=== PATIENT | male | born 1965 | race Caucasian/White ===

== ENCOUNTER → 2017-01-28 | Outpatient (CLI) | payer OTHER ==
[~2017-01-28] MED LIST: NITROGLYCERIN SL TABS 0.4 MG TAB SUBLINGUAL ONE
--- NOTE | 2017-01-28 13:10 | EST ---
DATE OF SERVICE: 01/28/2017 AGE: 51Y SEX: M HT: 67 WT: 200 lbs. Protocol Kp: X Other: Stage: III Dur. of Exercise: 6:15 *Heart Rate Blood Pressure *Rest: 111 Rest: 164/76 * *Max. Achieved: 142 Maximum BP: 160/92 85% PMHR: 142 100% PMHR: 167 *METS: 7.5 INDICATIONS: Chest pain. MEDICATIONS: The test is being done to evaluate symptoms of epigastric and chest pain. Baseline EKG showed sinus rhythm with mild ST-T depressions in the inferolateral leads. Patient did not have any chest pain with this. Blood pressure at rest is 164/76 with pulse rate of 111. Patient walked on the Kp protocol for 6 minutes and 15 seconds, achieving a maximum heart rate 142 with a blood pressure of 160/92. EKGs showed more pronounced ST-T abnormalities in the inferolateral leads, which gradually improved in the postexercise period. The changes were not associated with any chest pain. FINAL IMPRESSION: 1. Nondiagnostic stress test because of baseline EKG abnormalities. 2. Patient developed more pronounced ST-T changes during the exercise. I would recommend a repeat stress with imaging either in the form of stress echo or nuclear stress test. 3. Patient did not experience any chest pain. 4. Patient's exercise capacity is below average.
== END | disposition home or self-care (01) ==
LOC: RADNMMAIN 10:54
PROVIDERS: ATTEND Internal Medicine
DX: R07.89 Other chest pain (principal)
CPT/HCPCS: 93017

== ENCOUNTER → 2017-02-09 | Outpatient (CLI) | payer OTHER ==
[~2017-02-09] MED LIST changes: +DOBUTamine DRIP for NUC MED 500 MG in DEXTROSE/WATER 1 250ML.BAG IV ONE; -NITROGLYCERIN SL TABS 0.4 MG TAB SUBLINGUAL ONE
== END | disposition home or self-care (01) ==
LOC: RADNMMAIN 09:47
PROVIDERS: ATTEND Internal Medicine
DX: Z53.9 Procedure and treatment not carried out, unspecified reason (principal)

== ENCOUNTER → 2017-02-11 | Outpatient (CLI) | payer OTHER ==
[2017-02-11 09:25] LABS: CH 28.6; CHCM 32.9; HCT 50.1 % (39.0-53.0); HDW 2.63; HGB 16.5 gm/dL (13.0-17.5); MCH 28.8 pg (25.0-35.0); MCHC 32.9 g/dL (31.0-37.0); MCV 87.5 fL (80.0-100.0); Mean Platelet Volume 6.7; RBC 5.72 m/uL (4.30-5.90); RDW 13.3 % (11.5-15.5); WBC 9.4 k/uL (3.8-10.6)
[2017-02-11 09:38] LABS: Anion Gap 10 mmol/L; Blood Urea Nitrogen 14 mg/dL (9-20); Carbon Dioxide 25 mmol/L (22-30); Chloride 109 mmol/L (98-107); Non-African American GFR(MDRD) >60 (>60 ml/min/1.73 sqM); Potassium 4.1 mmol/L (3.5-5.1); Sodium 144 mmol/L (137-145)
== END | disposition home or self-care (01) ==
LOC: LABPAT 08:50
PROVIDERS: ATTEND Internal Medicine Interventional Cardiology
DX: Z01.812 Encounter for preprocedural laboratory examination (principal); R94.30 Abnormal result of cardiovascular function study, unspecified
CPT/HCPCS: 80051; 82565; 84520; 85027

== ENCOUNTER → 2017-02-18 | Day surgery (SDC) | payer OTHER ==
[2017-02-17 09:30] VITALS: BMI 32.3
[~2017-02-18] MED LIST changes: +ALPRAZolam 0.25 MG TAB PO PRN; +ALPRAZolam 0.5 MG TAB PO PRN; +ASPIRIN 325 MG TAB PO STA; +ATORVASTATIN 80 MG TAB PO STA; -DOBUTamine DRIP for NUC MED 500 MG in DEXTROSE/WATER 1 250ML.BAG IV ONE; +HEPARIN SODIUM 1,000 UNIT/ML VIAL ONE; +IOHEXOL 350 MG/ML 125ML BOTTLE INJ ONE; +LIDOCAINE 2% INJ 20 MG/ML (20 ML MDV) ONE; +LIDOCAINE 2% INJ 20 MG/ML SQ ONE; +MD COMMUNICATION TO PHARMACY 1 EACH MISC PO ONE; +MIDAZOLAM 2 MG/2 ML VIAL IV ONE; +MIDAZOLAM 2 MG/2 ML VIAL ONE; +NITROGLYCERIN SL TABS 0.4 MG TAB SUBLINGUAL PRN; +RX INFO: IV CONTRAST WAS GIVEN 1 EACH MISC MISCELLANE PRN; +SODIUM CHLORIDE 0.9% 1,000 ML IV SCH; +SODIUM CHLORIDE 0.9% 1,000 ML in EMPTY BAG 1 BAG IV ONE; +VERAPAMIL 2.5 MG/ML 2 ML AMP ONE
[2017-02-18 10:44] VITALS: RESP 18; TEMP 98
[2017-02-18] MEDS: VERAPAMIL SYRINGE (5 MG/10 ML) INTRAARTER ONE ×2 (12:47→13:04)
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
[2017-02-18 15:22] LABS: Basophils % (A) 0 %; CH 28.9; CHCM 32.6; Eosinophils # (A) 0.1 k/uL (0-0.7); Eosinophils % (A) 1 %; HCT 48.8 % (39.0-53.0); HGB 15.6 gm/dL (13.0-17.5); Luc # (Auto) 0.14; Luc % (Auto) 2; Lymphocytes # (A) 2.5 k/uL (1.0-4.8); Lymphocytes % (A) 30 %; MCH 28.5 pg (25.0-35.0); MCV 89.1 fL (80.0-100.0); Mean Platelet Volume 7.2; Monocytes # (A) 0.4 k/uL (0-1.0); Monocytes % (A) 4 %; Neutrophils # (A) 5.5 k/uL (1.3-7.7); Neutrophils % (A) 64 %; RBC 5.48 m/uL (4.30-5.90); RDW 13.6 % (11.5-15.5); WBC 8.6 k/uL (3.8-10.6); WBC (Perox) 8.34
[2017-02-18 15:31] LABS: ALT 33 U/L (21-72); AST 18 U/L (17-59); Alkaline Phosphatase 93 U/L (38-126); Anion Gap 10 mmol/L; Blood Urea Nitrogen 10 mg/dL (9-20); Calcium 8.9 mg/dL (8.4-10.2); Carbon Dioxide 24 mmol/L (22-30); Chloride 108 mmol/L (98-107); Cholesterol 183 mg/dL (<200); Glucose 91 mg/dL (74-99); HDL Cholesterol 35 mg/dL (40-60); Non-African American GFR(MDRD) >60 (>60 ml/min/1.73 sqM); Potassium 3.9 mmol/L (3.5-5.1); Sodium 142 mmol/L (137-145); Total Bilirubin 0.8 mg/dL (0.2-1.3); Total Protein 7.6 g/dL (6.3-8.2); Triglycerides 163 mg/dL (<150)
--- NOTE | 2017-02-18 15:32 | XR ---
EXAMINATION TYPE: XR chest 2V DATE OF EXAM: 02/18/2017 COMPARISON: Chest x-ray September 21, 2015. HISTORY: Presurgical study. TECHNIQUE: Frontal and lateral views of the chest are obtained. FINDINGS: Eventration of right hemidiaphragm is present. There is no focal air space opacity, pleural effusion, or pneumothorax seen. The cardiac silhouette size is within normal limits. The osseous structures are intact. IMPRESSION: No acute cardiopulmonary process.
[2017-02-18 15:35] LABS: Appearance,Urine Clear (Clear); Bacteria,Urine Rare /hpf; Bilirubin,Urine Negative (Negative); Glucose,Urine (UA) Negative (Negative); Ketones,Urine Negative (Negative); Leukocyte Esterase,Urine Negative (Negative); Nitrite,Urine Negative (Negative); Particle Count 96; Protein,Urine Negative (Negative); RBC,Urine 1 /hpf (0-5); Specific Gravity,Urine 1.035 (1.001-1.035); UA Billing (MACRO vs. MICRO) MICRO; Urobilinogen,Urine <2.0 mg/dL (<2.0); WBC,Urine 1 /hpf (0-5)
[2017-02-18 15:44] LABS: Partial Thromboplastin Time 25.5 sec (22.0-30.0)
[2017-02-18 15:48] LABS: Prothrombin Time 10.2 sec (9.0-12.0)
[2017-02-18 16:01] LABS: Hepatitis B Surface Ag Index 0.06
[2017-02-18 16:08] LABS: Hepatitis B Core IgM Index 0.02
[2017-02-18 16:18] LABS: Hepatitis C Virus IgG Ab Negative (Negative); Hepatitis C Virus IgG Index 0.03
[2017-02-18 16:21] VITALS: BP 133/84; PULSE 69
--- NOTE | 2017-02-18 17:36 | US ---
EXAMINATION TYPE: US carotid duplex BILAT DATE OF EXAM: 02/18/2017 COMPARISON: NONE CLINICAL HISTORY: 51-year-old male preop CABG. Pre op CABG, exam done portable in ESU. TECHNIQUE: Duplex carotid ultrasound examination. Indirect Doppler criteria was utilized. FINDINGS: Trevizo scale images show mild atelectatic change at the bifurcations. EXAM MEASUREMENTS: RIGHT: Peak Systolic Velocity (PSV) cm/sec ----- Right CCA: 68.4 ----- Right ICA: 59.0 ----- Right ECA: 123.8 ICA/CCA ratio: 0.9 RIGHT: End Diastole cm/sec ----- Right CCA: 20.1 ----- Right ICA: 25.2 ----- Right ECA: 14.1 LEFT: Peak Systolic Velocity (PSV) cm/sec ----- Left CCA: 77.7 ----- Left ICA: 61.3 ----- Left ECA: 62.1 ICA/CCA ratio: 0.8 LEFT: End Diastole cm/sec ----- Left CCA: 22.7 ----- Left ICA: 23.0 ----- Left ECA: 9.1 VERTEBRALS (direction of flow): Right Vertebral: Antegrade Left Vertebral: Antegrade IMPRESSION: No hemodynamically significant stenosis appreciated in either internal carotid artery. Criteria for Assigning % of Stenosis / Diameter reduction (Estimation based on the indirect measurements of the internal carotid artery velocities (ICA PSV). 1. Normal (no stenosis)=ICA PSV < 125 cm/s: ratio < 2.0: ICA EDV<40 cm/s. 2. Less than 50% stenosis=ICA PSV < 125 cm/s: ratio < 2.0: ICA EDV<40 cm/s. 3. 50 to 69% stenosis=ICA PSV of 125 to 230 cm/s: ration 2.0 ? 4.0: ICA EDV 40-100 cm/s. 4. Greater than 70% stenosis to near occlusion= ICA PSV > 230 cm/s: ratio > 4.0: ICA EDV > 100 cm/s. 5. Near occlusion= ICA PSV velocities may be low or undetectable: variable ratio and ICA EDV. 6. Total occlusion=unable to detect flow.
--- NOTE | 2017-02-19 09:08 | CC ---
DATE OF SERVICE: 02/18/2017 PERFORMING PHYSICIAN: Ganga Garduno MD, Mushroom Growing Supervisor. PROCEDURE PERFORMED: 1. Selective right and left coronary angiogram. 2. Left heart catheterization. 3. Left ventriculography. INDICATION: This is a pleasant 51-year-old gentleman who was experiencing intermittent episodes of chest discomfort consistent with unstable angina. He was brought today to undergo a heart catheterization. APPROACH: Right radial artery. COMPLICATIONS: None. LEVEL OF SEDATION: Moderate with a sedation length of 21 minutes. PROCEDURE DESCRIPTION: After obtaining informed consent, the patient was brought to the cardiac dental laboratory supervisor. The right radial artery was cannulated using micropuncture technique. The micropuncture wire passed easily, then I placed 6 Tongan sheath in the right radial artery. Subsequently, I did selective right and left coronary angiogram using JR4 and JL3.5 catheters. After that, I did a left heart catheterization using a 6 Tongan pigtail catheter and also I did left ventriculography using the same pigtail catheter. The procedure was completed without any complication. SELECTIVE CORONARY ANGIOGRAM: 1. The right coronary artery is a large-caliber vessel and it is a dominant vessel. The right coronary artery is totally occluded in the proximal portion right after the bifurcation of the conus branch. Distally it fills by collateral and it seems to be a decent size vessel. 2. The left main is very short and almost nonexistent. 3. The left circumflex: The proximal left circumflex appeared to have a tubular lesion, appears to be in the range of 70%. This is by the bifurcation of the first obtuse marginal branch, which works almost as a ramus, which has some mild disease in the proximal portion. The proximal left circumflex seems to be diseased in the range of 70%. The mid-left circumflex appeared to have mild disease only and gives rises into the second OM branch, which also seems to be a large-caliber vessel with severe disease in the proximal portion. The left circumflex distally is 100% occluded on short segment. 4. Left anterior descending artery: The proximal LAD appeared to have focal tight lesion in the range of 99%. The mid LAD and distal LAD appeared to be angiographically normal. The LAD gives rises into multiple small diagonal branches. 5. HEMODYNAMICS: The left ventricular end-diastolic pressure was 20 mmHg and no gradient was identified across the aortic valve. 6. Left ventriculography was performed in the BECKHAM projection and using a power injection. The left ventricular systolic function seems to be mildly impaired with EF about 40% to 45% with slightly dilated left ventricle. CONCLUSION: 1. Severe triple-vessel coronary artery disease. 2. Occluded right coronary artery in the proximal portion. 3. Occluded distal left circumflex. 4. Critical disease involving the proximal left anterior descending coronary artery. 5. Mildly impaired left ventricular function. 6. Elevated left ventricular end-diastolic pressure. POSTPROCEDURE MANAGEMENT: The patient will be scheduled to undergo to consult surgery, Dr. Villafuerte to see the patient.
--- NOTE | 2017-02-19 10:09 | ECHOF ---
Referral Reason:preop cabg MEASUREMENTS -------- HEIGHT: 165.1 cm WEIGHT: 9.1 kg BP: 118/63 IVSd: 1.2 cm (0.6 - 1.1) LVIDd: 5.3 cm (3.9 - 5.3) LVPWd: 1.1 cm (0.6 - 1.1) IVSs: 1.7 cm LVIDs: 3.6 cm LVPWs: 1.2 cm LAESV Index (A-L): 76.63 ml/m Ao Diam: 3.2 cm (2.0 - 3.7) AV Cusp: 1.7 cm (1.5 - 2.6) LA Diam: 4.1 cm (2.7 - 3.8) MV EXCURSION: 24.324 mm (> 18.000) MV EF SLOPE: 161 mm/s (70 - 150) EPSS: 0.5 cm MV E Andrey: 0.68 m/s MV DecT: 167 ms MV A Andrey: 0.73 m/s MV E/A Ratio: 0.93 RAP: 5.00 mmHg RVSP: 10.90 mmHg FINDINGS -------- Sinus rhythm. This was a technically adequate study. There is moderate concentric left ventricular hypertrophy. Overall left ventricular systolic function is mild-moderately impaired with, an EF between 40 - 45 %. Anterseptal Hypokinesis Meacham Hypokinesis. The right ventricle is normal in size. LA is severely dilated >40 ml/m2 The right atrial size is normal. There is mild aortic valve sclerosis. There is no evidence of aortic regurgitation. Mild mitral regurgitation is present. Mild tricuspid regurgitation present. There is no evidence of pulmonary hypertension. The right ventricular systolic pressure, as measured by Doppler, is 10.90mmHg. Trace/mild (physiologic) pulmonic regurgitation. The aortic root size is normal. There is no pericardial effusion. CONCLUSIONS -------- 1. There is moderate concentric left ventricular hypertrophy. 2. The right ventricular systolic pressure, as measured by Doppler, is 10.90mmHg. 3. Trace/mild (physiologic) pulmonic regurgitation. 4. The aortic root size is normal. 5. There is no pericardial effusion. 6. Overall left ventricular systolic function is mild-moderately impaired with, an EF between 40 - 45 %. 7. Anterseptal Hypokinesis 8. Meacham Hypokinesis. 9. LA is severely dilated >40 ml/m2 10. There is mild aortic valve sclerosis. 11. Mild mitral regurgitation is present. 12. Mild tricuspid regurgitation present. 13. There is no evidence of pulmonary hypertension. INSURANCE BILLING CLERK: Juany De Leon RDCS
--- NOTE | 2017-02-24 10:11 | P.VSCSTY ---
Greater Saphenous Vein Mapping This is bilateral lower extremity greater saphenous vein mapping. Date of service 02/18/2017 Vein quality and ultrasound appearance normal. Vein size groin right 7.5 x 9.0 groin left 11.8 x 10.9 High thigh right 6.3 x 6.5 high thigh left 8.1 x 8.1 Mid thigh right 6.2 x 5.8 mid thigh left 5.8 x 5.4 Above-knee right 7.0 x 6.7 above- knee left 6.5 x 5.4 Below knee right 7.1 x 6.5 below-knee left 4.2 x 4.4 Mid calf right 5.6 x 4.7 mid calf left 4.0 x 4.4 Ankle right 5.4 x 4.3 ankle left 4.5 x 3.7 Impression usable bilateral greater saphenous vein. Somewhat large at the thigh level. Left lower leg most suitable in size for coronaries.
== END ==
LOC: CATHCVL 10:24
PROVIDERS: ATTEND Internal Medicine Interventional Cardiology
DX: I25.118 Atherosclerotic heart disease of native coronary artery with other forms of angina pectoris (principal); I25.110 Atherosclerotic heart disease of native coronary artery with unstable angina pectoris; I25.82 Chronic total occlusion of coronary artery; I08.3 Combined rheumatic disorders of mitral, aortic and tricuspid valves; R94.39 Abnormal result of other cardiovascular function study; I10 Essential (primary) hypertension; E78.5 Hyperlipidemia, unspecified; E78.00 Pure hypercholesterolemia, unspecified; M19.90 Unspecified osteoarthritis, unspecified site; F17.210 Nicotine dependence, cigarettes, uncomplicated; Z79.82 Long term (current) use of aspirin; Z79.891 Long term (current) use of opiate analgesic; Z79.899 Other long term (current) drug therapy
CPT/HCPCS: 99152; 94150; 93306; 93458; 80061; 80053; 80074; 84443; 83036; 83735; 85025; 85610; 85730; 81001; 87070; 87086; 71020; 93970; 93880; 99153; C1894; J2001; J2250; Q9967; 86850; 86900; 86901; 86920

== ENCOUNTER 2017-02-22 05:40 | Inpatient (IN) | payer OTHER ==
[2017-02-19 13:12] VITALS: BMI 32.3
[~2017-02-22 05:40] MED LIST changes: +ALBUMIN HUMAN 25% 50 ML IV ONE; +ALBUMIN HUMAN 5% 500 ML IVPB ONE; -ALPRAZolam 0.25 MG TAB PO PRN; -ALPRAZolam 0.5 MG TAB PO PRN; +AMINOCAPROIC ACID 250 MG/ML 20 ML VIAL IV ONE; +AMINOCAPROIC ACID 5,000 MG in DEXTROSE 5% IN WATER 50 ML IV ONE; +ASPIRIN 325 MG TAB PO ONE; -ASPIRIN 325 MG TAB PO STA; +ATORVASTATIN 10 MG TAB PO ONE; -ATORVASTATIN 80 MG TAB PO STA; +CALCIUM CHLORIDE 100 MG/ML 10 ML SYRINGE IV ONE; +CHLORHEXIDINE GLUCONATE 15 ML CUP MUCOUS MEM ONE; +CLEVIDIPINE BUTYRATE 25 MG in EMPTY BAG 1 BAG IV ONE; +DEXTROSE 5% IN WATER 1,000 ML with POTASSIUM CHLORIDE 110 MEQ, MAGNESIUM SULFATE 16 MEQ... IV ONE; +DEXTROSE 5% IN WATER 1,000 ML with POTASSIUM CHLORIDE 25 MEQ, SODIUM CHLORIDE 4MEQ/ML V... IV ONE; +DILTIAZEM 125 MG in SODIUM CHLORIDE 0.9% 100 ML IV ONE; +HEPARIN SODIUM 1,000 UNIT/ML VIAL IV ONE; -HEPARIN SODIUM 1,000 UNIT/ML VIAL ONE; +HEPARIN SODIUM,PORCINE 5,000 UNIT in SODIUM CHLORIDE 0.9% 500 ML IV ONE; +INSULIN REGULAR 100 UNIT in SODIUM CHLORIDE 0.9% 100 ML IV ONE; -IOHEXOL 350 MG/ML 125ML BOTTLE INJ ONE; +LACTATED RINGERS 1,000 ML IV ONE; +LACTATED RINGERS 1,000 ML IV SCH; -LIDOCAINE 2% INJ 20 MG/ML (20 ML MDV) ONE; -LIDOCAINE 2% INJ 20 MG/ML SQ ONE; +MAGNESIUM SULFATE MG 500 MG/ML VIAL IV ONE; +MANNITOL 25% 12.5 GM/50 ML VIAL IV ONE; -MD COMMUNICATION TO PHARMACY 1 EACH MISC PO ONE; +METOPROLOL TARTRATE 12.5 MG TAB PO ONE; -MIDAZOLAM 2 MG/2 ML VIAL IV ONE; +MIDAZOLAM 2 MG/2 ML VIAL IV PRN; -MIDAZOLAM 2 MG/2 ML VIAL ONE; +MUPIROCIN 2% OINT 22 GM TUBE NASAL NR; +NITROGLYCERIN-D5W PMX 25 MG/250 ML BTL IV ONE; +NITROGLYCERIN-D5W PMX 50 MG in DEXTROSE/WATER 1 250ML.BAG IV ONE; +NOREPINEPHRIN 4 MG-0.9% NS PMX 4 MG/250 ML ML IV ONE; +PAPAVERINE 360 MG in SODIUM CHLORIDE 0.9% 90 ML IV ONE; +PHENYLEPHRINE 40 MG in SODIUM CHLORIDE 0.9% 250 ML IV ONE; +PHENYLEPHRINE-0.9% NACL SYG 1 MG/10 ML SYRINGE IV ONE; +PROPOFOL 50 ML IV ONE; +PROTAMINE SULFATE 10 MG/ML 25 ML VIAL IV ONE; +PROTAMINE SULFATE 250 MG in EMPTY BAG 1 BAG IV ONE; -RX INFO: IV CONTRAST WAS GIVEN 1 EACH MISC MISCELLANE PRN; +SODIUM BICARB 8.4% 50 ML SYR (1 MEQ/ML) IV ONE; +SODIUM CHLORIDE 0.9% 1,000 ML IV ONE; -SODIUM CHLORIDE 0.9% 1,000 ML IV SCH; -SODIUM CHLORIDE 0.9% 1,000 ML in EMPTY BAG 1 BAG IV ONE; -VERAPAMIL 2.5 MG/ML 2 ML AMP ONE; +ceFAZolin 1,000 MG in SODIUM CHLORIDE 0.9% IRRIGATIO 1,000 ML IRRIGATION ONE; +ceFAZolin 2,000 MG in SODIUM CHLORIDE 0.9% 30 ML IVPB ONE
[2017-02-22] MEDS ORDERED: fentaNYL (PF) 50 MCG/ML 50 ML VIAL ONE (07:59)
[2017-02-22] MEDS ORDERED: PROPOFOL 10 MG/ML 20 ML VIAL IV ONE (07:59)
[2017-02-22] MEDS ORDERED: HEPARIN SODIUM,PORCINE 10,000 UNIT/ML 1 ML VIAL ONE (07:59)
[2017-02-22] MEDS ORDERED: ALBUMIN HUMAN 5% 250 ML BOTTLE IVPB ONE (07:59)
[2017-02-22] MEDS ORDERED: ELECTROLYTE-R (PH 7.4) 1,000 ML IV.SOLN IV ONE (07:59)
[2017-02-22] MEDS ORDERED: VECURONIUM 10 MG VIAL IV ONE (07:59)
[2017-02-22] MEDS ORDERED: MIDAZOLAM 2 MG/2 ML VIAL ONE (07:59)
[2017-02-22] MEDS ORDERED: LACTATED RINGERS 1,000 ML BAG IV ONE (07:59)
[2017-02-22 08:48] LABS: Glucose,Whole Blood 106 mg/dL (75-99)
[2017-02-22] MEDS ORDERED: DILTIAZEM 125 MG in SODIUM CHLORIDE 0.9% 100 ML IV SCH ×2 (10:30→15:30)
[2017-02-22 11:25] LABS: Glucose,Whole Blood 104 mg/dL (75-99)
[2017-02-22 12:56] LABS: Glucose,Whole Blood 247 mg/dL (75-99)
[2017-02-22 13:14] LABS: Glucose,Whole Blood 198 mg/dL (75-99)
[2017-02-22 13:55] LABS: Glucose,Whole Blood 135 mg/dL (75-99)
[2017-02-22] MEDS ORDERED: ALBUMIN HUMAN 5% 250 ML IVPB ONE (14:12)
[2017-02-22 14:50] LABS: Glucose,Whole Blood 114 mg/dL (75-99)
[2017-02-22] MEDS ORDERED: METOCLOPRAMIDE 5 MG/ML 2 ML VIAL IVP PRN (15:06)
[2017-02-22] MEDS ORDERED: ONDANSETRON 4 MG/2 ML VIAL IVP PRN (15:06)
[2017-02-22] MEDS ORDERED: Magnesium Replacement Protocol 1 EACH MISC MISCELLANE PRN (15:06)
[2017-02-22] MEDS ORDERED: MORPHINE SULFATE 2 MG/ML SYRINGE IVP PRN (15:06)
[2017-02-22] MEDS ORDERED: BENZOCAINE/MENTHOL LOZENG 1 EACH LOZENGE MUCOUS MEM PRN (15:06)
[2017-02-22] MEDS ORDERED: CALCIUM GLUCONATE 2,000 MG in SODIUM CHLORIDE 0.9% 100 ML IVPB PRN (15:06)
[2017-02-22] MEDS ORDERED: Potassium Replacement Protocol 1 EACH MISC MISCELLANE PRN (15:06)
[2017-02-22] MEDS ORDERED: Phosphorus Replacement Protoco 1 EACH MISC MISCELLANE PRN (15:06)
[2017-02-22] MEDS ORDERED: NITROGLYCERIN-D5W PMX 50 MG in DEXTROSE/WATER 1 250ML.BAG IV SCH (15:30)
[2017-02-22] MEDS ORDERED: INSULIN REGULAR 100 UNIT in SODIUM CHLORIDE 0.9% 100 ML IV SCH (15:30)
[2017-02-22] MEDS ORDERED: CLEVIDIPINE BUTYRATE 25 MG in EMPTY BAG 1 BAG IV SCH (15:30)
[2017-02-22] MEDS: LACTATED RINGERS 1,000 ML IV SCH (15:33)
[2017-02-22 15:57] LABS: Basophils % (A) 0 %; CH 28.9; CHCM 33.2; Eosinophils # (A) 0.1 k/uL (0-0.7); Eosinophils % (A) 1 %; HCT 32.7 % (39.0-53.0); HDW 2.65; Luc # (Auto) 0.08; Luc % (Auto) 1; Lymphocytes # (A) 1.7 k/uL (1.0-4.8); Lymphocytes % (A) 18 %; MCH 28.9 pg (25.0-35.0); MCHC 32.9 g/dL (31.0-37.0); MCV 87.7 fL (80.0-100.0); Mean Platelet Volume 8.6; Monocytes # (A) 0.5 k/uL (0-1.0); Monocytes % (A) 5 %; Neutrophils # (A) 6.9 k/uL (1.3-7.7); Neutrophils % (A) 75 %; RBC 3.73 m/uL (4.30-5.90); RDW 13.2 % (11.5-15.5); WBC 9.2 k/uL (3.8-10.6); WBC (Perox) 8.93
[2017-02-22 16:06] LABS: INR 1.2 (<1.1); Partial Thromboplastin Time 34.2 sec (22.0-30.0); Prothrombin Time 11.8 sec (9.0-12.0)
[2017-02-22 16:07] LABS: Glucose,Whole Blood 82 mg/dL (75-99)
[2017-02-22 16:10] LABS: HGB 10.8 gm/dL (13.0-17.5)
[2017-02-22 16:15] LABS: Ionized Calcium 4.6 mg/dL (4.5-5.3)
--- NOTE | 2017-02-22 16:15 | XR ---
EXAMINATION TYPE: XR chest 1V portable DATE OF EXAM: 02/22/2017 COMPARISON: 02/18/2017 INDICATION: Postoperative cardiac surgery TECHNIQUE: Single frontal view of the chest is obtained. FINDINGS: The heart size is normal. The pulmonary vasculature is normal. No suspicious infiltrates are evident. Sternotomy wires from the patient's CABG are evident. Endotracheal tube is present with the tip 2.4 cm above the wilda. Nasogastric tube transverses the t horax with tip in left upper quadrant of the abdomen. Mediastinal tubes are present. Monson-Rolanda cathet er is present with the tip within the proximal main pulmonary artery artery. Bilateral chest tubes ar e present. No pneumothorax is evident on the supine images. Some subcutaneous air is in the left neck . IMPRESSION: 1. Multiple lines and catheters discussed above. 2. Small amount of subcutaneous air is in the left neck. Pneumothorax is not identified.
[2017-02-22 16:26] LABS: ALT 16 U/L (21-72); AST 36 U/L (17-59); Alkaline Phosphatase 37 U/L (38-126); Anion Gap 7 mmol/L; Blood Urea Nitrogen 12 mg/dL (9-20); Calcium 7.3 mg/dL (8.4-10.2); Carbon Dioxide 25 mmol/L (22-30); Chloride 111 mmol/L (98-107); Glucose 74 mg/dL (74-99); Magnesium 2.7 mg/dL (1.6-2.3); Non-African American GFR(MDRD) >60 (>60 ml/min/1.73 sqM); Potassium 4.2 mmol/L (3.5-5.1); Sodium 143 mmol/L (137-145); Total Bilirubin 0.9 mg/dL (0.2-1.3); Total Protein 5.1 g/dL (6.3-8.2)
[2017-02-22 16:40] LABS: ABG HCO3 25 mmol/L (21-25); ABG PCO2 49 mmHg (35-45); ABG PH 7.32 (7.35-7.45); ABG PO2 259 mmHg (83-108)
[2017-02-22 16:41] LABS: ABG Base Excess -0.7 mmol/L; ABG Oxygen Saturation 99.8 % (94-97); ABG TCO2 26 mmol/L (19-24)
[2017-02-22 16:44] LABS: Glucose,Whole Blood 71 mg/dL (75-99)
[2017-02-22] MEDS: IPRATROPIUM-ALBUTEROL 3 ML NEB INHALATION SCH ×3 (17:04→23:07)
[2017-02-22] MEDS: ceFAZolin 2 GM in SODIUM CHLORIDE 0.9% 100 ML IVPB SCH (17:17)
[2017-02-22] MEDS: PROPOFOL 500 MG in EMPTY BAG 1 BAG IV SCH ×2 (17:20→20:08)
[2017-02-22 17:27] LABS: Glucose,Whole Blood 79 mg/dL (75-99)
--- NOTE | 2017-02-22 17:37 | OP ---
DATE OF SERVICE: 02/22/2017 SURGEON: Yves Villafuerte MD PROJECT DEVELOPMENT DIRECTOR: 1. JUANA Toledo 2. NEREYDA Cochran 3. Hamilton Castillo NP PREOPERATIVE DIAGNOSES: 1. Triple vessel coronary artery disease. 2. Stable angina. 3. Mild to moderate left ventricular dysfunction. 4. Mild mitral valve regurgitation. 5. Hypertension. 6. Hyperlipidemia. 7. Tobacco abuse. POSTOPERATIVE DIAGNOSES: 1. Triple vessel coronary artery disease. 2. Stable angina. 3. Mild to moderate left ventricular dysfunction. 4. Mild mitral valve regurgitation. 5. Hypertension. 6. Hyperlipidemia. 7. Tobacco abuse. OPERATION: 1. Triple coronary artery bypass grafting using the left internal mammary artery to the left anterior descending artery, left radial artery taken as a Y-graft from the left internal mammary artery and anastomosed to the second obtuse marginal artery, reverse saphenous vein graft from the aorta to the posterior descending artery. 2. Endoscopic harvesting of the left radial artery. 3. Endoscopic harvesting of the left greater saphenous vein. 4. Intraoperative transesophageal echocardiogram and epiaortic scanning. 5. Intraoperative graft flow measurement. ANESTHESIA: ESTIMATED BLOOD LOSS: SPECIMENS REMOVED: COMPLICATIONS: OPERATIVE FINDINGS: INDICATION FOR SURGERY: Patient is a 51-year-old gentleman with the above comorbidities, who was worked up for recent worsening of stable angina and was found to have a totally occluded right coronary artery that is chronic with right to right collaterals and a totally occluded circumflex system with left to left collaterals and severe stenosis of the proximal left anterior descending artery, which was essentially his only patent vessel. His left ventricular function was estimated at around 45%. Patient is being brought in today for coronary artery bypass grafting. Patient has a short sternum and I am planning to do radial artery rather than the right internal mammary artery to the occluded circumflex system. His vein seems to be bit large on US. Risks, benefits, and alternatives were discussed with him. He understood and agreed to proceed. DESCRIPTION OF THE PROCEDURE: Patient in supine position and the right internal jugular Hickman-Rolanda catheter and a right brachial arterial line were placed in the preoperative holding area. PA pressure was 45/20 and cardiac index of 0.4. Subsequently he was brought to the operating room, where general endotracheal anesthesia was induced uneventfully. [place] catheter was inserted. The chest, abdomen and both lower extremities as well as the left upper extremities were prepped and draped using ChloraPrep. Ioban was used to cover the skin. Patient received 2 grams of cefazolin intravenously. Transesophageal echocardiogram confirmed the preoperative finding of moderate left ventricular dysfunction with mild mitral valve regurgitation. Midline sternotomy was performed and the bone was quite dense but not bleeding much. The left hemisternum was elevated and left internal mammary artery was harvested in a somewhat skeletonized fashion. The left pleura was intentionally opened in this process and was drained with 28 [place] chest tube. There was also a large breech in the right pleura and the right pleural cavity was drained with another 28 [place] chest tube. In the same setting, the left radial artery was harvested endoscopically after a clamping trial at the wrist revealed preserved pulsatile O2 signal at the level of the index finger. The forearm incision was closed over a drain. The radial artery was prepared by incising the fascia all along its volar aspect and clipping all the branches and was around 3 mm in diameter and good quality. Also in the same setting, the left greater saphenous vein was harvested endoscopically after administration of 2500 units of heparin. It was harvested from ankle to mid thigh level where it became very large. The leg incisions were closed over a drain. The vein was prepared and appeared to be in its below knee segment uniform around 4 mm in diameter, but became large in the 5 to 6 mm diameter, non-varicose though, at the level of the thigh and that segment was not used. Mediastinal fat was dissected between 2 ties and epiaortic scanning revealed no protruding atheroma in the ascending aorta. Pericardium was opened in an inverted T fashion and a pericardial cradle was created. Findings included a small short aorta, hypertrophied heart. There was also evidence of diffuse coronary artery disease. There was evidence of fibrotic changes in the lateral wall and the inferior wall did umbilicate once we were on pump indicating also some muscle thinning inferiorly. After placement of respective pledgeted pursestring and after systemic heparinization aortic cannulation with a 21 [place] soft flow cannula, venous cannulation with a dual-stage venous cannula was performed. Antegrade as well as retrograde catheters were placed. At this point , and before initiating CPB, we elected to anastomose the left radial artery to the left internal mammary artery for inflow. The mammary artery was doubly clipped distally and transected and had a good pulsatile flow in it. However, it was thin-walled, around 2 mm in diameter. So the left radial artery was anastomosed at the level of the left pleural pericardial reflection to the left internal mammary artery as a Y-graft using Prolene 7-0. There was excellent pulsatile flow from both arterial ends at the end of this. At this point we initiated cardiopulmonary bypass and with the heart warm and empty, we looked at the targets as it would have been extremely hard to visualize the lateral wall with the heart full, in view of patient's anatomy . The right coronary artery was diffusely diseased and the posterior descending artery was the site for bypass. The left anterior descending artery was also diffusely diseased but its distal aspect was soft with lateral plaque. Look at the lateral wall as mentioned above, there was some fibrotic changes. The ramus vessel was a very small vessel. The second obtuse marginal branch, which was the mid lateral branch was of good diameter. The third OM over the posterolateral branch from the circumflex artery was very small and diffusely diseased, non- bypassable. So the targets were LAD, second obtuse marginal artery, and posterior descending artery. The aorta was clamped at this point and during aortic clamping, myocardial protection was achieved with an initial dose of 1 liter of antegrade cold blood cardioplegia followed by 500 mL of retrograde cold blood cardioplegia. All subsequent doses were given retrograde as well as through the vein graft that was initially constructed to the posterior descending artery to ensure delivery of cardioplegia to the infero- posteriror wall. The first distal anastomosis was between a segment of reverse saphenous vein graft of good quality, around 4 mm in diameter and thin-walled and the posterior descending artery, which was around 1.5 mm in diameter with no major plaque in it at that level using Prolene 7-0 in continuous fashion. That anastomosis was hemostatic and there was good flow in the vein that was connected to a Y-arm off the retrograde delivery system for maintenance doses through the vein simultaneously with a retrograde coronary sinus cannula. Looking at the lateral wall and initially we had planned to eventually sequential the radial artery if need be to the lateral targets in case we had two; however, we had only one target, which was mid ventricular branch or the second obtuse marginal branch. So the radial artery was anastomosis in an end-to-side fashion to the second obtuse marginal artery, which was opened, was around 1.5 mm in diameter using Prolene 7-0 in continuous fashion. That anastomosis was hemostatic. The third and last distal anastomosis was between the left internal mammary artery and the mid to distal aspect of the left anterior descending artery, which was opened, had a soft eccentric plaque in it, was around 1.5 mm in diameter using Prolene 7-0 in continuous fashion. That was also hemostatic. At this point rewarming started as we punched out one button of 5 mm from the anterior aspect of the proximal aorta and performed the single proximal anastomosis of the vein to the aorta using Prolene 6-0 in continuous fashion. We gave warm blood retrograde as we were performing that anastomosis. Patient was given lidocaine and magnesium before unclamping the aorta. He regained spontaneous sinus rhythm; however, he was bradycardic. Two monopolar atrial pacing wires were affixed to the right atrial appendage and the right atrial free wall. One bipolar ventricular pacing wire was driven via the inferior aspect of the right ventricle. After a period of reperfusion after the initial measurement showing patent graft, we were able to wean off cardiopulmonary bypass without any need of any inotropic support, atrially paced at 80. CARIN showed improved left ventricular function. There was mild mitral valve regurgitation. With that, test dose than full dose protamine was given. Decannulation proceeded. The retrograde site and the venous cannulation sites were reinforced. One 32 Maur[place] substernal chest tube was placed. Pericardial fat was approximated over the heart, the grafts and the aorta loosely. We had performed full flow measurements once we were off bypass and we had 3 very well functioning grafts with excellent parameters. After ensuring adequate hemostasis and hemodynamics and after correct sponge, instrument and needle count, the sternum was approximated using 5 [id number] [place] cable after interposing fibrillar between the sternal edges. Thorough irrigation with cefazolin followed. The rest of the closure proceeded in layers. Skin glue was applied. Patient did not receive any blood product but received 800 mL of Cell Saver blood. He was transferred to the ICU in stable condition, atrially paced at 80, mean arterial pressure of 84, PA pressure of 31/17. MTDD
[2017-02-22 18:23] LABS: Glucose,Whole Blood 96 mg/dL (75-99)
[2017-02-22 18:35] LABS: Basophils % (A) 0 %; CH 28.5; CHCM 31.7; Eosinophils % (A) 0 %; HCT 36.7 % (39.0-53.0); HDW 2.53; HGB 11.7 gm/dL (13.0-17.5); Luc # (Auto) 0.16; Luc % (Auto) 1; Lymphocytes # (A) 2.4 k/uL (1.0-4.8); Lymphocytes % (A) 18 %; MCH 28.8 pg (25.0-35.0); MCHC 31.9 g/dL (31.0-37.0); MCV 90.2 fL (80.0-100.0); Mean Platelet Volume 8.2; Monocytes # (A) 0.7 k/uL (0-1.0); Monocytes % (A) 5 %; Neutrophils # (A) 9.7 k/uL (1.3-7.7); Neutrophils % (A) 75 %; RBC 4.07 m/uL (4.30-5.90); RDW 13.6 % (11.5-15.5); WBC 12.9 k/uL (3.8-10.6); WBC (Perox) 13.01
[2017-02-22] MEDS: ACETAMINOPHEN IV (For NPO) 1,000 MG in EMPTY BAG 1 BAG IVPB SCH (18:35)
[2017-02-22 19:19] LABS: Glucose,Whole Blood 114 mg/dL (75-99)
[2017-02-22] MEDS: ALBUMIN HUMAN 5% 250 ML in EMPTY BAG 1 BAG IVPB PRN ×2 (19:38→19:39)
[2017-02-22] MEDS ORDERED: IPRATROPIUM-ALBUTEROL 3 ML NEB INHALATION SCH (20:00)
[2017-02-22 20:39] LABS: Glucose,Whole Blood 115 mg/dL (75-99)
[2017-02-22] MEDS: MUPIROCIN 2% OINT 22 GM TUBE NASAL SCH (21:02)
[2017-02-22 21:16] LABS: Glucose,Whole Blood 111 mg/dL (75-99)
--- NOTE | 2017-02-22 21:28 | P.PN ---
Progress Note - Text Procedure performed: Transesophageal echocardiography Indication for the procedure: Coronary artery bypass graft surgery, ischemia monitoring, assessment of valvular function, intracardiac air monitoring, assessment of regional wall motion abnormalities and hemodynamic monitoring. Probe insertion: Under general anesthesia, uneventful. Pre-bypass findings: Left ventricle: moderate hypertrophy present and LV ejection fraction is approximately 45%. Global hypokinesis evident. Left atrium dilated. No thrombus seen in the appendage. Right atrium normal in size. No patent foramen ovale or ASD seen. Right ventricle normal in structure and function. Aortic valve appears to be sclerotic .No Aortic Regurgitation seen. Aortic valve area by planimetry 2.5 cm. Mitral valve normal in anatomy. Trivial to Mild mitral regurgitation seen. Trivial tricuspid regurgitation seen. Pulmonic valve appears to be normal. Descending aorta grade 1-2 atheroma seen. No pericardial effusion noted. There is grade 1 diastolic dysfunction Post-bypass findings: LV ejection fraction appears to be improved to 50% No new regional wall motion abnormalities noted. The rest of the exam is same as pre-bypass.
[2017-02-22 22:15] LABS: Glucose,Whole Blood 114 mg/dL (75-99)
[2017-02-22 23:04] LABS: Glucose,Whole Blood 112 mg/dL (75-99)
[2017-02-22] MEDS ORDERED: DEXMEDETOMIDINE 400 MCG in SODIUM CHLORIDE 0.9% 100 ML IV SCH (23:53)
[2017-02-23 00:23] LABS: Glucose,Whole Blood 127 mg/dL (75-99)
[2017-02-23] MEDS: ceFAZolin 2 GM in SODIUM CHLORIDE 0.9% 100 ML IVPB SCH ×2 (00:56→08:28)
[2017-02-23] MEDS: ACETAMINOPHEN IV (For NPO) 1,000 MG in EMPTY BAG 1 BAG IVPB SCH ×3 (00:56→12:04)
[2017-02-23] MEDS: HEPARIN SODIUM,PORCINE 5,000 UNIT/ML 1 ML VIAL SQ SCH ×3 (01:00→15:12)
[2017-02-23 01:23] LABS: Glucose,Whole Blood 138 mg/dL (75-99)
[2017-02-23 02:14] LABS: Glucose,Whole Blood 138 mg/dL (75-99)
[2017-02-23 03:25] LABS: Glucose,Whole Blood 140 mg/dL (75-99)
[2017-02-23 03:54] LABS: ABG Base Excess -1.7 mmol/L; ABG HCO3 23 mmol/L (21-25); ABG PCO2 38 mmHg (35-45); ABG PH 7.39 (7.35-7.45); ABG PO2 67 mmHg (83-108); ABG TCO2 24 mmol/L (19-24)
[2017-02-23 04:16] LABS: Glucose,Whole Blood 134 mg/dL (75-99)
[2017-02-23 04:29] LABS: Basophils % (A) 0 %; CH 28.8; Eosinophils % (A) 0 %; HCT 32.8 % (39.0-53.0); Luc # (Auto) 0.11; Luc % (Auto) 1; Lymphocytes # (A) 0.8 k/uL (1.0-4.8); Lymphocytes % (A) 8 %; MCH 29.3 pg (25.0-35.0); MCHC 33.4 g/dL (31.0-37.0); MCV 87.7 fL (80.0-100.0); Mean Platelet Volume 8.9; Monocytes # (A) 0.6 k/uL (0-1.0); Monocytes % (A) 6 %; Neutrophils # (A) 8.5 k/uL (1.3-7.7); Neutrophils % (A) 85 %; RBC 3.74 m/uL (4.30-5.90); RDW 13.5 % (11.5-15.5); WBC (Perox) 10.63
[2017-02-23] MEDS: IPRATROPIUM-ALBUTEROL 3 ML NEB INHALATION SCH ×5 (05:03→20:06)
[2017-02-23 05:12] LABS: Ionized Calcium 4.7 mg/dL (4.5-5.3)
[2017-02-23 05:25] LABS: ALT 19 U/L (21-72); AST 50 U/L (17-59); Alkaline Phosphatase 44 U/L (38-126); Anion Gap 7 mmol/L; Blood Urea Nitrogen 15 mg/dL (9-20); Calcium 7.7 mg/dL (8.4-10.2); Carbon Dioxide 23 mmol/L (22-30); Chloride 114 mmol/L (98-107); Glucose 126 mg/dL (74-99); Magnesium 2.3 mg/dL (1.6-2.3); Non-African American GFR(MDRD) >60 (>60 ml/min/1.73 sqM); Potassium 4.2 mmol/L (3.5-5.1); Sodium 144 mmol/L (137-145); Total Bilirubin 0.9 mg/dL (0.2-1.3); Total Protein 5.4 g/dL (6.3-8.2)
[2017-02-23 05:31] LABS: Glucose,Whole Blood 128 mg/dL (75-99)
[2017-02-23] MEDS ORDERED: DEXMEDETOMIDINE IV SCH (06:21)
[2017-02-23 06:22] LABS: Glucose,Whole Blood 118 mg/dL (75-99)
[2017-02-23 07:27] LABS: Glucose,Whole Blood 126 mg/dL (75-99)
[2017-02-23 07:34] LABS: ABG HCO3 24 mmol/L (21-25); ABG Oxygen Saturation 99.9 % (94-97); ABG PCO2 45 mmHg (35-45); ABG PH 7.36 (7.35-7.45); ABG PO2 288 mmHg (83-108); ABG TCO2 26 mmol/L (19-24)
[2017-02-23 07:35] LABS: ABG Base Excess -3.3 mmol/L; ABG HCO3 24 mmol/L (21-25); ABG Oxygen Saturation 98.1 % (94-97); ABG PCO2 53 mmHg (35-45); ABG PH 7.27 (7.35-7.45); ABG PO2 121 mmHg (83-108); ABG TCO2 25 mmol/L (19-24)
[2017-02-23 07:38] LABS: ABG Base Excess -0.6 mmol/L; ABG HCO3 25 mmol/L (21-25); ABG Oxygen Saturation 99.8 % (94-97); ABG PCO2 48 mmHg (35-45); ABG PH 7.33 (7.35-7.45); ABG PO2 258 mmHg (83-108); ABG TCO2 26 mmol/L (19-24)
[2017-02-23 07:39] LABS: ABG Base Excess -1.1 mmol/L; ABG HCO3 24 mmol/L (21-25); ABG Oxygen Saturation 99.9 % (94-97); ABG PCO2 45 mmHg (35-45); ABG PH 7.35 (7.35-7.45); ABG PO2 361 mmHg (83-108); ABG TCO2 25 mmol/L (19-24)
[2017-02-23 07:40] LABS: ABG Base Excess -2.4 mmol/L; ABG HCO3 22 mmol/L (21-25); ABG Oxygen Saturation 99.9 % (94-97); ABG PCO2 40 mmHg (35-45); ABG PH 7.36 (7.35-7.45); ABG PO2 279 mmHg (83-108); ABG TCO2 23 mmol/L (19-24)
[2017-02-23 07:41] LABS: ABG Base Excess -1.2 mmol/L; ABG HCO3 24 mmol/L (21-25); ABG Oxygen Saturation 99.9 % (94-97); ABG PCO2 46 mmHg (35-45); ABG PH 7.34 (7.35-7.45); ABG PO2 276 mmHg (83-108); ABG TCO2 26 mmol/L (19-24)
[2017-02-23] MEDS ORDERED: FUROSEMIDE 10 MG/ML 2 ML VIAL IV ONE ×2 (07:45→20:14)
[2017-02-23 08:17] LABS: Glucose,Whole Blood 128 mg/dL (75-99)
[2017-02-23 08:26] LABS: INR 1.1 (<1.1)
[2017-02-23] MEDS: ASPIRIN 325 MG TAB PO SCH (08:28)
[2017-02-23] MEDS ORDERED: PANTOPRAZOLE 40 MG/10 ML VIAL IVP SCH (09:00)
--- NOTE | 2017-02-23 09:22 | XR ---
EXAMINATION TYPE: XR chest 1V portable DATE OF EXAM: 02/23/2017 COMPARISON: February 22, 2017 at 3:58 PM HISTORY: Postoperative cardiac surgery, follow-up TECHNIQUE: AP semiupright portable FINDINGS: Since the prior study patient has been extubated and the NG tube is been removed. There is a right IJ [place] catheter, with tip in the proximal RPA. Bilateral chest tubes are noted. Sternal sutu res and mediastinal clips and EKG leads are also appreciated. A small pneumothorax is redemonstrated along the left heart border, this appears quite small. No othe r abnormal gas collections evident. Relatively low lung inflation at the moment of x-ray exposure, but the visualized lungs are predomina ntly clear and well expanded bilaterally. Bones and soft tissues are unremarkable. IMPRESSION: POST EXTUBATION CHEST X-RAY; SMALL LEFT PNEUMOTHORAX.
[2017-02-23 09:31] LABS: Glucose,Whole Blood 129 mg/dL (75-99)
--- NOTE | 2017-02-23 10:06 | CONS ---
DATE OF CONSULTATION: Mr. Tamez is a 51-year-old male who was admitted yesterday and underwent coronary bypass grafting. He has been seen by Dr. Garduno and underwent cardiac catheterization last week and was found to have severe triple vessel coronary artery disease. Cardiac catheterization showed an occluded right coronary artery as well as occluded left circumflex, and significant obstructive disease involving the left anterior descending artery. His ejection fraction was estimated at 40% to 45%. He underwent surgical intervention yesterday with GARCIA to the LAD, left radial as Y graft from the GARCIA to the second obtuse marginal branch and saphenous vein graft to the PDA. He is extubated, feeling well. He has some soreness in the chest. He is in sinus mechanism. He has no dizziness or palpitation. He has no evidence of hypotension or hemodynamic compromise. His coronary risk factors remarkable for history of hypertension, hyperlipidemia, and chronic tobacco use. He is nondiabetic. His medications at home included: 1. Amlodipine 10 mg daily. 2. Metoprolol 25 mg twice a day. 3. Lipitor 80 mg daily. 4. Aspirin once a day. Prior to his surgical intervention, he had an echocardiogram that showed an ejection fraction of 40% to 45% with mild mitral and tricuspid regurgitation. REVIEW OF SYSTEMS: RESPIRATORY SYSTEM: He has history of chronic tobacco use. No recent wheezing. GI: No recent GI bleeding. No peptic ulcer disease. system: No dysuria or hematuria. Nervous system: No history of stroke or seizure. PHYSICAL EXAMINATION: He is a 51-year-old male, alert, oriented, sitting up. Blood pressure 106/60 with a heart rate in the 70s. HEAD: Normocephalic. EYES: Sclerae anicteric. NECK: No bruit. Industry-Rolanda catheter noted on the right side. LUNGS: With mild decreased in breath sounds. HEART: S1, S2, no rub. ABDOMEN: Soft, nontender, positive bowel sounds. EXTREMITIES: Dressing ( ) no significant edema. Lab data revealed a BUN and creatinine 15 and 0.88. Potassium 4.2. Hemoglobin of 11. IMPRESSION: 1. Status post coronary artery bypass grafting. 2. Ischemic cardiomyopathy. 3. Hypertension. 4. Hyperlipidemia. 5. Prior history of smoking. RECOMMENDATIONS: From the cardiac standpoint, we will continue present therapy and continue incentive spirometry, increase his level of activity gradually. If his pressure is stable, then we will add an HOMAR inhibitor in view of his cardiomyopathy. Depending on his progress, further recommendation will be made. Thank you for this consult. We will follow with you.
[2017-02-23 10:11] LABS: Glucose,Whole Blood 132 mg/dL (75-99)
--- NOTE | 2017-02-23 11:12 | P.PN ---
Progress Note - Text [facility] Nursing [place] diagnosis: Triple-vessel coronary artery disease, stable angina, mild to moderate left ventricular dysfunction, mild mitral valve regurgitation, hypertension, hyperlipidemia, tobacco abuse. POD #1, status post elective triple coronary artery bypass grafting using the left internal mammary artery to the left anterior descending coronary artery, left radial artery taken as a Y graft from the left internal mammary artery and anastomosed to the second obtuse marginal coronary artery, a reverse greater saphenous vein graft from the aorta to the posterior descending coronary artery. Endoscopic harvesting of the left radial artery, endoscopic harvesting of the left greater saphenous vein, and intraoperative transesophageal echocardiogram and epi-aortic scanning. Patient awake and alert, Precedex drip remained at 0.2 mcg/kg per hour. No distress noted, no specific complaints. He is sitting up in a chair position in his bed. Vital Signs: Afebrile Vital Signs - 24 hr 02/22/17 02/22/17 02/22/17 15:06 15:44 15:50 Temperature Pulse Rate 79 80 Pulse Rate [ Left] Respiratory Rate O2 Sat by Pulse 100 Oximetry 02/22/17 02/22/17 02/22/17 16:00 16:10 16:20 Temperature Pulse Rate 79 79 80 Pulse Rate [ 80 Left] Respiratory 16 Rate O2 Sat by Pulse 98 100 100 Oximetry 02/22/17 02/22/17 02/22/17 16:30 16:40 16:50 Temperature 96.8 F L Pulse Rate 79 80 79 Pulse Rate [ Left] Respiratory Rate O2 Sat by Pulse 99 98 100 Oximetry 02/22/17 02/22/17 02/22/17 17:00 17:05 17:10 Temperature 97.7 F Pulse Rate 80 79 79 Pulse Rate [ Left] Respiratory Rate O2 Sat by Pulse 100 97 Oximetry 02/22/17 02/22/17 02/22/17 17:20 17:30 17:40 Temperature Pulse Rate 80 79 79 Pulse Rate [ Left] Respiratory Rate O2 Sat by Pulse 97 98 98 Oximetry 02/22/17 02/22/17 02/22/17 17:50 18:00 18:10 Temperature 97.7 F Pulse Rate 80 79 79 Pulse Rate [ Left] Respiratory Rate O2 Sat by Pulse 96 97 97 Oximetry 02/22/17 02/22/17 02/22/17 18:20 18:30 18:40 Temperature Pulse Rate 79 79 80 Pulse Rate [ Left] Respiratory Rate O2 Sat by Pulse 97 95 94 L Oximetry 02/22/17 02/22/17 02/22/17 18:50 19:00 19:10 Temperature 97.3 F L Pulse Rate 80 79 79 Pulse Rate [ Left] Respiratory Rate O2 Sat by Pulse 94 L 94 L 94 L Oximetry 02/22/17 02/22/17 02/22/17 19:16 19:24 19:30 Temperature Pulse Rate 80 80 80 Pulse Rate [ Left] Respiratory Rate O2 Sat by Pulse 93 L Oximetry 02/22/17 02/22/17 02/22/17 20:00 20:30 21:00 Temperature Pulse Rate 80 80 79 Pulse Rate [ 80 Left] Respiratory Rate O2 Sat by Pulse 90 L 92 L 93 L Oximetry 02/22/17 02/22/17 02/22/17 21:30 22:00 22:30 Temperature Pulse Rate 80 80 79 Pulse Rate [ Left] Respiratory Rate O2 Sat by Pulse 91 L 94 L 94 L Oximetry 02/22/17 02/22/17 02/22/17 23:00 23:10 23:30 Temperature Pulse Rate 80 80 79 Pulse Rate [ Left] Respiratory 11 L 11 L Rate O2 Sat by Pulse 93 L 92 L Oximetry 02/23/17 02/23/17 02/23/17 00:00 00:30 01:00 Temperature Pulse Rate 80 80 78 Pulse Rate [ Left] Respiratory 12 14 12 Rate O2 Sat by Pulse 92 L 92 L 92 L Oximetry 02/23/17 02/23/17 02/23/17 01:30 02:00 02:30 Temperature Pulse Rate 70 73 73 Pulse Rate [ Left] Respiratory 16 11 L 14 Rate O2 Sat by Pulse 93 L 93 L 94 L Oximetry 02/23/17 02/23/17 02/23/17 03:00 03:30 04:00 Temperature Pulse Rate 78 73 72 Pulse Rate [ Left] Respiratory 13 11 L 11 L Rate O2 Sat by Pulse 94 L 93 L 94 L Oximetry 02/23/17 02/23/17 02/23/17 04:30 05:00 05:30 Temperature Pulse Rate 75 72 72 Pulse Rate [ Left] Respiratory 16 12 13 Rate O2 Sat by Pulse 93 L 94 L 93 L Oximetry 02/23/17 02/23/17 02/23/17 06:00 06:30 07:00 Temperature Pulse Rate 82 71 68 Pulse Rate [ Left] Respiratory 13 12 13 Rate O2 Sat by Pulse 92 L 93 L 93 L Oximetry 02/23/17 07:30 Temperature Pulse Rate 72 Pulse Rate [ Left] Respiratory 15 Rate O2 Sat by Pulse 93 L Oximetry ABP, PAP, CO, CI - Last 8 Hours Arterial Blood Pressure 105/64 Arterial Blood Pressure 95/54 Arterial Blood Pressure 104/65 Arterial Blood Pressure 109/66 Arterial Blood Pressure 97/53 Arterial Blood Pressure 94/53 Arterial Blood Pressure 91/55 Arterial Blood Pressure 101/55 Arterial Blood Pressure 97/56 Arterial Blood Pressure 102/62 Arterial Blood Pressure 103/61 Arterial Blood Pressure 99/60 Arterial Blood Pressure 88/57 Arterial Blood Pressure 111/60 Arterial Blood Pressure 96/92 Arterial Blood Pressure 94/61 Pulmonary Artery Pressure 49/34 Pulmonary Artery Pressure 44/29 Pulmonary Artery Pressure 46/31 Pulmonary Artery Pressure 45/31 Pulmonary Artery Pressure 36/20 Pulmonary Artery Pressure 41/25 Pulmonary Artery Pressure 38/23 Pulmonary Artery Pressure 32/18 Pulmonary Artery Pressure 33/20 Pulmonary Artery Pressure 38/22 Pulmonary Artery Pressure 36/21 Pulmonary Artery Pressure 37/22 Pulmonary Artery Pressure 38/22 Pulmonary Artery Pressure 35/21 Pulmonary Artery Pressure 51/32 Pulmonary Artery Pressure 40/25 Cardiac Output 6.3 Cardiac Output 6.5 Cardiac Output 6.4 Cardiac Output 7.4 Cardiac Output 7.4 Cardiac Output 7.4 Cardiac Output 6.5 Cardiac Index 3.1 Cardiac Index 3.2 Cardiac Index 3.2 Cardiac Index 3.7 Cardiac Index 3.2 Labs: Short CBC 02/22/17 02/22/17 02/23/17 Range/Units 15:45 18:05 04:12 WBC 9.2 12.9 H 10.0 (3.8-10.6) k/uL Hgb 10.8 L D 11.7 L 11.0 L (13.0-17.5) gm/dL Hct 32.7 L 36.7 L 32.8 L (39.0-53.0) % Plt Count 114 L D 150 135 L (150-450) k/uL Neutrophils # 6.9 9.7 H 8.5 H (1.3-7.7) k/uL BMP 02/22/17 02/22/17 02/23/17 15:45 18:05 04:12 Sodium 143 144 Potassium 4.2 4.4 4.2 Chloride 111 H 114 H Carbon Dioxide 25 23 BUN 12 15 Creatinine 0.94 0.88 Glucose 74 126 H Calcium 7.3 L 7.7 L Liver Function 02/22/17 02/23/17 Range/Units 15:45 04:12 Total Bilirubin 0.9 0.9 (0.2-1.3) mg/dL AST 36 50 (17-59) U/L ALT 16 L 19 L (21-72) U/L Alkaline Phosphatase 37 L 44 (38-126) U/L Albumin 3.1 L 3.3 L (3.5-5.0) g/dL PT and INR results pending. IV Fluids: Lactated Ringer's at 50 mL per hour Insulin drip at 1 unit per hour Precedex drip at 0.2 mcg/kg/h Nitroglycerin drip at 5 mcg/m Cardiac output: 6.3 Cardiac index: 3.1 Pulmonary artery pressures: 44/29 CVP: 22 Lungs: Essentially clear throughout, diminished bilateral bases. Respirations are symmetrical and unlabored. The patient was extubated at 4:25 AM today. O2 sat: 93% on 5 L nasal cannula. I/S: 750 mL, reviewed with the patient important of using his incentive spirometry every hour. The patient did give a good return demonstration on his incentive spirometry. Heart: S1S2, regular rhythm and rate, negative for S3, gallop or murmur. Bedside telemetry showing normal sinus rhythm heart rate 75. Sternum stable, chest incision clean with Dermabond dressing clean and dry. Heart hugger in place, patient is demonstrating proper use of his heart hugger. Left arm incisions clean dry and well approximated. No drainage noted. Positive ulnar pulse palpable to his left wrist. Bilateral hands warm to touch. Dressing dry and intact to his left arm, Neil wrap in place. TITA drain in place, 10 mL output since surgery. Left leg incision clean dry and well approximated. No drainage noted. TITA drain in place, 10 mL output in the last 8 hours, 40 mL output since surgery. Right leg with knee-high KALIE hose, left leg with Neil wrap from toes to thigh. Sequential compression devices in place to his bilateral lower extremities. Abdomen: Soft, nontender. Positive bowel sounds present in all 4 quadrants. CBGs: 79-140 mg/dL in the since surgery. U/O: Adequate, [place] catheter for accurate I&O. 375 mL output in the last 8 hours. Chest Tubes: Left pleural chest tube without air leak, remains to low continuous wall suction -20 cm H2O. Draining thin serosanguineous drainage, 140 mL output in the last 8 hours, 350 ml output since surgery. Mediastinal chest tube without air leak, remains to low continuous wall suction -20 cm H2O. Draining thin serosanguineous drainage, 115 mL output in the last 8 hours, 250 ml output since surgery. Right pleural chest tube without air leak,remains to low continuous wall suction -20 cm H2O. Draining thin serosanguineous drainage, 40 mL output in the last 8 hours, 100 ml output since surgery. 24 hr Total: Intake & Output 02/21/17 02/22/17 02/23/17 02/24/17 06:59 06:59 06:59 06:59 Intake Total 2780.065 162.608 Output Total 4600 101 Balance -1819.935 61.608 Weight 94.4 kg Active Medications Hydrocodone Bitart/Acetaminophen ([place] 5-325) 2 each PO Q4HR PRN PRN Reason: Severe Pain Hydrocodone Bitart/Acetaminophen ([place] 5-325) 1 each PO Q4HR PRN PRN Reason: Moderate Pain Albuterol/Ipratropium (Duoneb 0.5 Mg-3 Mg/3 Ml Soln) 3 ml INHALATION RT-Q4H [facility] Last Admin: 02/23/17 05:03 Dose: Not Given Aspirin (Aspirin) 325 mg PO DAILY [facility] Atorvastatin Calcium (Lipitor) 40 mg PO DAILY [facility] Benzocaine/Menthol (Cepacol Lozenge) 1 each MUCOUS MEM Q2H PRN PRN Reason: Sore Throat Bisacodyl (Dulcolax) 10 mg RECTAL DAILY PRN PRN Reason: Constipation Clopidogrel Bisulfate (Plavix) 75 mg PO DAILY [facility] Heparin Sodium (Porcine) (Heparin) 5,000 unit SQ Q8HR [facility] Last Admin: 02/23/17 01:00 Dose: 5,000 unit Acetaminophen 1,000 mg/ IV (Solution) 100 mls @ 400 mls/hr IVPB Q6HR [facility] Stop: 02/23/17 17:50 Last Admin: 02/23/17 06:39 Dose: 400 mls/hr Albumin Human 250 ml/ IV (Solution) 250 mls @ 250 mls/hr IVPB Q1HR PRN PRN Reason: For Volume Stop: 02/24/17 15:07 Last Admin: 02/22/17 19:39 Dose: 250 mls/hr Calcium Gluconate 2,000 mg/ (Sodium Chloride) 120 mls @ 100 mls/hr IVPB ONCE PRN PRN Reason: Ionized Calcium less than 4.4 Stop: 02/23/17 15:07 Cefazolin Sodium 2 gm/ Sodium (Chloride) 100 mls @ 100 mls/hr IVPB Q8HR [facility] Stop: 02/23/17 08:59 Last Admin: 02/23/17 00:56 Dose: 100 mls/hr Clevidipine 25 mg/ IV Solution 50 mls @ 2 mls/hr IV .Q24H [facility]; 1 MG/HR PRN Reason: Protocol Last Admin: 02/22/17 19:30 Dose: Not Given Diltiazem HCl 125 mg/ Sodium (Chloride) 125 mls @ 5 mls/hr IV .Q24H [facility] PRN Reason: 5 MG/HR Last Admin: 02/22/17 08:00 Dose: 0 mls Insulin Human Regular 100 unit (/ Sodium Chloride) 101 mls @ 0 mls/hr IV .Q0M [facility]; Per Protocol PRN Reason: Protocol Last Titration: 02/23/17 07:28 Dose: 1 unit/hr, 1.01 mls/hr Lactated Ringer's (Lactated Ringers) 1,000 mls @ 50 mls/hr IV .Q20H [facility] Last Admin: 02/22/17 15:33 Dose: 50 mls/hr Nitroglycerin/Dextrose 50 mg/ (IV Solution) 250 mls @ 1.5 mls/hr IV .Q24H [facility] PRN Reason: 5 MCG/MIN Last Admin: 02/22/17 18:35 Dose: 5 mcg/min, 1.5 mls/hr Propofol 500 mg/ IV Solution 50 mls @ 0 mls/hr IV .Q0M [facility]; Titrate PRN Reason: Protocol Last Titration: 02/23/17 00:10 Dose: 0 mcg/kg/min, 0 mls/hr Dexmedetomidine HCl 400 mcg/ (IV Solution) 104 mls @ 0 mls/hr IV .Q0M [facility]; Per Protocol PRN Reason: Protocol Last Admin: 02/23/17 06:39 Dose: 0.2 mcg/kg/hr, 4.71 mls/hr Magnesium Hydroxide (Milk Of Magnesia) 2,400 mg PO BID PRN PRN Reason: Constipation Metoclopramide HCl (Reglan) 10 mg IVP Q4H PRN PRN Reason: Nausea And Vomiting Metoprolol Tartrate (Lopressor) 12.5 mg PO BID [facility] Miscellaneous Information (Magnesium Per Protocol) 1 each MISCELLANE DAILY PRN ; Protocol PRN Reason: Per Protocol Miscellaneous Information (Phosphorus Per Protocol) 1 each MISCELLANE DAILY PRN ; Protocol PRN Reason: Per Protocol Miscellaneous Information (Potassium Per Protocol) 1 each MISCELLANE DAILY PRN ; Protocol PRN Reason: Per Protocol Morphine Sulfate (Morphine Sulfate (Inj)) 2 mg IVP Q2H PRN PRN Reason: Severe Pain Last Admin: 02/22/17 19:50 Dose: 2 mg Mupirocin (Bactroban Oint) 1 applic NASAL BID [facility] Stop: 02/25/17 21:01 Last Admin: 02/22/17 21:02 Dose: 1 applic Ondansetron HCl (Zofran) 4 mg IVP Q6HR PRN PRN Reason: Nausea And Vomiting Oxycodone HCl (Oxyir) 10 mg PO Q4H PRN PRN Reason: Severe Pain Stop: 02/23/17 17:00 Oxycodone HCl (Oxyir) 5 mg PO Q4H PRN PRN Reason: Moderate Pain Stop: 02/23/17 17:00 Pantoprazole Sodium (Protonix) 40 mg IVP DAILY [facility] Senna/Docusate Sodium (Senokot-S) 2 each PO HS [facility] Sodium Chloride (Saline Flush) 10 ml IV BID [facility] Last Admin: 02/22/17 21:02 Dose: 10 ml Plan: 1. Continue aspirin, statin, Plavix, heparin subcu, and beta keyla. 2. We will give Lasix 10 mg IV 1 now. 3. We will discontinue his [place]-Rol[place] catheter and leave his Cordis in place with continuous CVP monitoring. 4. We will add amlodipine 2.5 mg by mouth daily, we will shut off the nitroglycerin drip 2 hours after he receives his amlodipine dosed today. 5. Encourage use of his incentive spirometry every hour while awake. 6. Chest tubes were remain in place today to low continuous wall suction -20 cm H2O. 7. Wean oxygen as tolerated, pulmonary management per Dr. Lew's recommendations. 8. Blood sugar management per primary care service. 9. GI and DVT prophylaxis in place. 10. Further recommendations as patient progresses.
[2017-02-23] MEDS ORDERED: amLODIPine 2.5 MG TAB PO SCH ×2 (11:15→15:00)
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
[2017-02-23] MEDS: METOPROLOL TARTRATE 12.5 MG TAB PO SCH ×2 (11:22→20:27)
[2017-02-23] MEDS: MUPIROCIN 2% OINT 22 GM TUBE NASAL SCH ×2 (11:23→20:27)
[2017-02-23] MEDS: ATORVASTATIN 40 MG TAB PO SCH (11:23)
[2017-02-23] MEDS: CLOPIDOGREL 75 MG TAB PO SCH (11:23)
[2017-02-23 12:05] LABS: Glucose,Whole Blood 124 mg/dL (75-99)
[2017-02-23 12:16] LABS: Glucose,Whole Blood 128 mg/dL (75-99)
--- NOTE | 2017-02-23 13:26 | CDI ---
In responding to this query, please exercise your independent professional judgment. The [facility] Coding Staff and Clinical Documentation Specialists appreciate your assistance in clarifying documentation, maintaining compliance with coding guidelines, accurately documenting patients condition and capturing severity of illness. The fact that a question is asked does not imply that any particular answer is desired or expected. Communication forms are a method of clarifying documentation and are not made part of the Legal Health Record. Thank you in advance for your clarification. Last Revision, Oct 2016 Jaimie Bae [address] [place] [place] [address] Documentation Clarification Form Date: 02/23/2017 1:18:00 PM From: Lizette Jacobo RN, CCDS Admit Date: 02/22/2017 5:40:00 AM Patient Name: Sy Tamez Visit Number: [id number] Dr. Yves Villafuerte/ Raissa Hart CNP Post-operative atelectasis is documented in the pulmonary consult. Patients Admitting Diagnosis: Triple vessel disease Post-Operative Diagnosis: triple vessel disease Procedure performed: CABG with GARCIA, Radial and SVG History/Risk Factors: Smoker Clinical Indicators: Pt was extubated in eligibility manager hours of 1st 24 hrs Treatment: IS, bronchodilators, early ambulation Consults: Pulmonary In order to accurately reflect this patients severity of illness, please clarify if the post-operative diagnosis is: An expected post-procedural or post-surgical condition Integral to the procedure Inherent to the procedure An unexpected post-procedural or post-surgical condition, related to surgical care Other, please specify Unable to determine Please document in your progress notes and discharge summary in order to capture severity of illness and risk of mortality. Include clinical findings that support your diagnosis. FYI: Press F11 to launch patient chart __x___ Place X here if this finding has no clinical significance, is not applicable or if you are not able to provide any additional documentation. KALYN
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
[2017-02-23 14:08] LABS: Glucose,Whole Blood 120 mg/dL (75-99)
[2017-02-23] MEDS ORDERED: HYDROcodone/APAP 5-325MG 1 EACH TAB PO PRN (14:14)
[2017-02-23] MEDS ORDERED: BISACODYL 10 MG SUPP RECTAL PRN (14:15)
[2017-02-23] MEDS ORDERED: MAGNESIUM HYDROXIDE 2,400 MG/10 ML CUP PO PRN (14:15)
[2017-02-23] MEDS: KETOROLAC 30 MG/ML 1 ML VIAL IVP SCH ×2 (15:10→18:11)
[2017-02-23] MEDS: LACTATED RINGERS 1,000 ML IV SCH (15:23)
[2017-02-23 16:40] LABS: Glucose,Whole Blood 120 mg/dL (75-99)
[2017-02-23 18:01] LABS: Glucose,Whole Blood 113 mg/dL (75-99)
[2017-02-23 20:13] LABS: Glucose,Whole Blood 121 mg/dL (75-99)
[2017-02-23] MEDS ORDERED: IPRATROPIUM-ALBUTEROL 3 ML NEB INHALATION PRN (20:23)
[2017-02-23] MEDS: SENNOSIDES-DOCUSATE SODIUM 1 EACH TAB PO SCH (20:35)
[2017-02-23 22:10] LABS: Glucose,Whole Blood 130 mg/dL (75-99)
[2017-02-23] MEDS: HYDROcodone/APAP 5-325MG 1 EACH TAB PO PRN (23:17)
[2017-02-24] MEDS: KETOROLAC 30 MG/ML 1 ML VIAL IVP SCH ×5 (00:22→23:47)
[2017-02-24] MEDS: HEPARIN SODIUM,PORCINE 5,000 UNIT/ML 1 ML VIAL SQ SCH ×4 (00:22→23:47)
[2017-02-24 00:23] LABS: Glucose,Whole Blood 126 mg/dL (75-99)
[2017-02-24 02:34] LABS: Glucose,Whole Blood 113 mg/dL (75-99)
[2017-02-24 04:29] LABS: Glucose,Whole Blood 115 mg/dL (75-99)
[2017-02-24 04:39] LABS: Basophils % (A) 0 %; CH 29.1; CHCM 33.2; Eosinophils % (A) 0 %; HCT 32.1 % (39.0-53.0); HDW 2.65; HGB 10.6 gm/dL (13.0-17.5); Luc # (Auto) 0.19; Luc % (Auto) 2; Lymphocytes # (A) 1.8 k/uL (1.0-4.8); Lymphocytes % (A) 16 %; MCH 29.1 pg (25.0-35.0); MCV 88.1 fL (80.0-100.0); Mean Platelet Volume 8.3; Monocytes # (A) 0.6 k/uL (0-1.0); Monocytes % (A) 5 %; Neutrophils # (A) 8.7 k/uL (1.3-7.7); Neutrophils % (A) 77 %; RBC 3.65 m/uL (4.30-5.90); RDW 13.8 % (11.5-15.5); WBC 11.3 k/uL (3.8-10.6); WBC (Perox) 11.68
[2017-02-24 04:54] LABS: INR 1.2 (<1.1); Prothrombin Time 11.5 sec (9.0-12.0)
[2017-02-24 05:07] LABS: Ionized Calcium 4.8 mg/dL (4.5-5.3)
[2017-02-24 05:25] LABS: ALT 30 U/L (21-72); AST 50 U/L (17-59); Alkaline Phosphatase 52 U/L (38-126); Anion Gap 6 mmol/L; Blood Urea Nitrogen 19 mg/dL (9-20); Carbon Dioxide 25 mmol/L (22-30); Chloride 109 mmol/L (98-107); Glucose 109 mg/dL (74-99); Magnesium 2.3 mg/dL (1.6-2.3); Non-African American GFR(MDRD) >60 (>60 ml/min/1.73 sqM); Potassium 3.7 mmol/L (3.5-5.1); Sodium 140 mmol/L (137-145); Total Bilirubin 0.8 mg/dL (0.2-1.3); Total Protein 5.1 g/dL (6.3-8.2)
[2017-02-24 06:27] LABS: Glucose,Whole Blood 103 mg/dL (75-99)
[2017-02-24] MEDS: HYDROcodone/APAP 5-325MG 1 EACH TAB PO PRN (06:40)
[2017-02-24] MEDS ORDERED: POTASSIUM CHLORIDE ER 20 MEQ TAB.ER PO SCH (07:00)
[2017-02-24] MEDS ORDERED: FUROSEMIDE 10 MG/ML 2 ML VIAL IV ONE (07:31)
[2017-02-24 08:07] LABS: Glucose,Whole Blood 128 mg/dL (75-99)
[2017-02-24] MEDS: CLOPIDOGREL 75 MG TAB PO SCH (08:09)
[2017-02-24] MEDS: PANTOPRAZOLE 40 MG TABLET PO SCH (08:09)
[2017-02-24] MEDS: ATORVASTATIN 40 MG TAB PO SCH (08:10)
[2017-02-24] MEDS: MUPIROCIN 2% OINT 22 GM TUBE NASAL SCH ×2 (08:10→21:04)
[2017-02-24] MEDS: ASPIRIN 325 MG TAB PO SCH (08:10)
[2017-02-24] MEDS: METOPROLOL TARTRATE 25 MG TAB PO SCH ×2 (08:11→21:03)
[2017-02-24] MEDS: IPRATROPIUM-ALBUTEROL 3 ML NEB INHALATION SCH ×4 (08:30→20:18)
--- NOTE | 2017-02-24 08:35 | XR ---
EXAMINATION TYPE: XR chest 1V portable DATE OF EXAM: 02/24/2017 COMPARISON: 02/23/2017 INDICATION: Postop cardiac surgery TECHNIQUE: Single frontal view of the chest is obtained. FINDINGS: The heart size is mildly prominent. The pulmonary vasculature is normal. Some minimal subsegmental atelectasis is likely at the left base. Left-sided chest tube is present. No pneumothorax is present. A right central venous catheter sheath is evident. Sternotomy wires from the patient's CABG is present. Right basilar chest tube is present. IMPRESSION: 1. Mild infiltrate, likely atelectasis, left base. 2. Mild cardiomegaly
[2017-02-24 10:15] LABS: Glucose,Whole Blood 127 mg/dL (75-99)
--- NOTE | 2017-02-24 10:16 | P.PN ---
Progress Note - Text CV Surgery Nursing Principal diagnosis: Triple-vessel coronary artery disease, stable angina, mild to moderate left ventricular dysfunction, mild mitral valve regurgitation, hypertension, hyperlipidemia, tobacco abuse, postoperative atelectasis. POD #2, status post elective triple coronary artery bypass grafting using the left internal mammary artery to the left anterior descending coronary artery, left radial artery taken as a Y graft from the left internal mammary artery and anastomosed to the second obtuse marginal coronary artery, a reverse greater saphenous vein graft from the aorta to the posterior descending coronary artery. Endoscopic harvesting of the left radial artery, endoscopic harvesting of the left greater saphenous vein, and intraoperative transesophageal echocardiogram and epi-aortic scanning. Patient awake and alert, no distress noted, no specific complaints. He is sitting up to the bedside chair. Vital Signs: Afebrile Vital Signs - 24 hr 02/23/17 02/23/17 02/23/17 08:00 08:30 08:50 Temperature Pulse Rate 73 75 75 Respiratory 13 18 Rate O2 Sat by Pulse 91 L 91 L Oximetry 02/23/17 02/23/17 02/23/17 09:00 09:06 09:30 Temperature Pulse Rate 73 82 81 Respiratory 15 17 Rate O2 Sat by Pulse 94 L 91 L Oximetry 02/23/17 02/23/17 02/23/17 10:00 10:30 11:00 Temperature Pulse Rate 80 76 75 Respiratory 20 23 20 Rate O2 Sat by Pulse 91 L 91 L 89 L Oximetry 02/23/17 02/23/17 02/23/17 11:30 11:49 12:00 Temperature 97.8 F Pulse Rate 75 76 79 Respiratory 21 19 Rate O2 Sat by Pulse 88 L 91 L Oximetry 02/23/17 02/23/17 02/23/17 12:01 12:30 13:00 Temperature Pulse Rate 80 83 88 Respiratory 23 25 H Rate O2 Sat by Pulse 87 L 88 L Oximetry 02/23/17 02/23/17 02/23/17 13:30 13:39 14:00 Temperature Pulse Rate 91 85 Respiratory 37 H 26 H Rate O2 Sat by Pulse 89 L 92 L 96 Oximetry 02/23/17 02/23/17 02/23/17 14:30 15:00 15:30 Temperature Pulse Rate 79 84 81 Respiratory 21 26 H 23 Rate O2 Sat by Pulse 96 97 97 Oximetry 02/23/17 02/23/1717 15:54 16:00 16:10 Temperature 98.4 F Pulse Rate 79 80 87 Respiratory 19 Rate O2 Sat by Pulse 100 Oximetry 02/23/17 02/23/17 02/23/17 16:30 17:00 17:30 Temperature Pulse Rate 89 79 79 Respiratory 52 H 15 15 Rate O2 Sat by Pulse 96 95 96 Oximetry 02/23/17 02/23/17 02/23/17 18:00 18:30 19:00 Temperature Pulse Rate 82 78 78 Respiratory 20 27 H 21 Rate O2 Sat by Pulse 95 94 L 97 Oximetry 02/23/17 02/23/17 02/23/17 19:30 20:00 20:06 Temperature 98.5 F Pulse Rate 76 82 83 Respiratory 15 26 H Rate O2 Sat by Pulse 96 97 Oximetry 02/23/17 02/23/17 02/23/17:17 20:30 21:00 Temperature Pulse Rate 83 82 80 Respiratory 19 17 Rate O2 Sat by Pulse 94 L 96 Oximetry 02/23/17 02/23/17 02/23/17 21:30 22:00 22:30 Temperature Pulse Rate 84 79 78 Respiratory 21 15 14 Rate O2 Sat by Pulse 96 96 97 Oximetry 02/23/17 02/23/17 02/24/17 23:00 23:30 00:00 Temperature Pulse Rate 81 85 81 Respiratory 20 22 22 Rate O2 Sat by Pulse 97 95 94 L Oximetry 02/24/17 02/24/17 02/24/17 00:30 01:00 01:30 Temperature Pulse Rate 91 77 74 Respiratory 22 18 12 Rate O2 Sat by Pulse 91 L 95 98 Oximetry 02/24/17 02/24/17 02/24/17 02:00 02:30 03:00 Temperature Pulse Rate 78 82 74 Respiratory 20 29 H 12 Rate O2 Sat by Pulse 98 95 95 Oximetry 02/24/17 02/24/17 02/24/17 03:30 04:00 04:30 Temperature Pulse Rate 77 77 74 Respiratory 14 15 11 L Rate O2 Sat by Pulse 96 98 96 Oximetry ABP, PAP, CO, CI - Last 8 Hours Arterial Blood Pressure 132/72 Arterial Blood Pressure 146/80 Arterial Blood Pressure 140/81 Arterial Blood Pressure 133/78 Arterial Blood Pressure 151/81 Arterial Blood Pressure 129/69 Arterial Blood Pressure 121/65 Arterial Blood Pressure 134/71 Arterial Blood Pressure 133/72 Arterial Blood Pressure 154/73 Labs: Short CBC 02/24/17 Range/Units 04:25 WBC 11.3 H (3.8-10.6) k/uL Hgb 10.6 L (13.0-17.5) gm/dL Hct 32.1 L (39.0-53.0) % Plt Count 123 L (150-450) k/uL Neutrophils # 8.7 H (1.3-7.7) k/uL BMP 02/24/17 04:25 Sodium 140 Potassium 3.7 Chloride 109 H Carbon Dioxide 25 BUN 19 Creatinine 0.90 Glucose 109 H Calcium 8.0 L Liver Function 02/24/17 Range/Units 04:25 Total Bilirubin 0.8 (0.2-1.3) mg/dL AST 50 (17-59) U/L ALT 30 (21-72) U/L Alkaline Phosphatase 52 (38-126) U/L Albumin 3.1 L (3.5-5.0) g/dL ABG ABG pH 7.39 (7.35-7.45) 02/23/17 03:53 ABG pCO2 38 mmHg (35-45) 02/23/17 03:53 ABG pO2 67 mmHg (83-108) L 02/23/17 03:53 ABG O2 Saturation 93.0 % (94-97) L 02/23/17 03:53 PT/INR, D-dimer PT 11.5 sec (9.0-12.0) 02/24/17 04:25 INR 1.2 (<1.1) 02/24/17 04:25 IV Fluids: Lactated Ringer's at 20 mL per hour. CVP: 29 Lungs: Expiratory wheezes throughout, few scattered crackles to his bilateral bases. Respirations are symmetrical and unlabored. O2 sat: 95% on 5 L nasal cannula. I/S: 750 mL, reviewed with the patient important of using his incentive spirometry every hour while awake. The patient did give a good return demonstration on his incentive spirometry. Heart: S1S2, regular rhythm and rate, negative for S3, gallop or murmur. Bedside telemetry showing normal sinus rhythm heart rate 84. Sternum stable, chest incision clean with Dermabond dressing clean and dry. Heart hugger in place, patient is demonstrating appropriate use of his heart hugger. Atrial and ventricular epicardial pacemaker wires intact with a AAI backup of 60. Left arm incisions clean dry and well approximated. No drainage noted. TITA drain in place with 10 mL of thin serosanguineous output in the last 12 hours. Positive palpable ulnar pulse to his left. Hands are warm to touch bilaterally. Capillary refill less than 3 seconds to his bilateral hands. Left leg incision clean and dry and well approximated. No drainage noted. TITA drain in place, 20 mL output in the last 12 hours. Knee-high KALIE hose and sequential compression devices in place to his bilateral lower extremities. Abdomen: Soft, nontender. Positive bowel sounds present in all 4 quadrants. CBGs: 103-130 mg/dL in the last 24 hours. U/O: Adequate, [place] catheter for accurate I&O. 810 mL output in the last 8 hours. The patient did diurese well with the 20 mg of Lasix IV 1 last p.m. Chest Tubes: Left pleural chest tube without air leak, draining thin serosanguineous drainage. 90 mL output in the last 8 hours, 430 mL output in the last 24 hours. Mediastinal chest tube without air leak, draining thin serosanguineous drainage. 20 mL output in the last 8 hours, 130 mL output in the last 24 hours. Right pleural chest tube without air leak, draining thin serosanguineous drainage. 25 mL output in the last 8 hours, 70 mL output in the last 24 hours. All 3 chest tubes remained to continuous low wall suction at -20 cm H2O. 24 hr Total: Intake & Output 02/22/17 02/23/17 02/24/17 02/25/17 06:59 06:59 06:59 06:59 Intake Total 2780.065 1653.737 Output Total 4600 2194 Balance -1819.935 -540.263 Weight 94.4 kg 89.5 kg Active Medications Hydrocodone Bitart/Acetaminophen (Hecker 5-325) 2 each PO Q4HR PRN PRN Reason: Severe Pain Last Admin: 02/24/17 06:40 Dose: 2 each Hydrocodone Bitart/Acetaminophen (Hecker 5-325) 1 each PO Q4HR PRN PRN Reason: Moderate Pain Albuterol/Ipratropium (Duoneb 0.5 Mg-3 Mg/3 Ml Soln) 3 ml INHALATION RT-QID [facility] Albuterol/Ipratropium (Duoneb 0.5 Mg-3 Mg/3 Ml Soln) 3 ml INHALATION RT-Q2H PRN PRN Reason: Shortness Of Breath Or Wheezing Amlodipine Besylate (Norvasc) 5 mg PO DAILY@1200 [facility] Aspirin (Aspirin) 325 mg PO DAILY [facility] Last Admin: 02/23/17 08:28 Dose: 325 mg Atorvastatin Calcium (Lipitor) 40 mg PO DAILY [facility] Last Admin: 02/23/17 11:23 Dose: 40 mg Bisacodyl (Dulcolax) 10 mg RECTAL DAILY PRN PRN Reason: Constipation Clopidogrel Bisulfate (Plavix) 75 mg PO DAILY [facility] Last Admin: 02/23/17 11:23 Dose: 75 mg Heparin Sodium (Porcine) (Heparin) 5,000 unit SQ Q8HR [facility] Last Admin: 02/24/17 00:22 Dose: 5,000 unit Insulin Human Regular 100 unit (/ Sodium Chloride) 101 mls @ 0 mls/hr IV .Q0M [facility]; Per Protocol PRN Reason: Protocol Last Titration: 02/24/17 02:00 Dose: 0 unit/hr, 0 mls/hr Ketorolac Tromethamine (Toradol) 15 mg IVP Q6HR [facility] Stop: 02/27/17 13:45 Last Admin: 02/24/17 00:22 Dose: 15 mg Magnesium Hydroxide (Milk Of Magnesia) 2,400 mg PO BID PRN PRN Reason: Constipation Metoclopramide HCl (Reglan) 10 mg IVP Q4H PRN PRN Reason: Nausea And Vomiting Metoprolol Tartrate (Lopressor) 25 mg PO BID [facility] Miscellaneous Information (Magnesium Per Protocol) 1 each MISCELLANE DAILY PRN ; Protocol PRN Reason: Per Protocol Miscellaneous Information (Phosphorus Per Protocol) 1 each MISCELLANE DAILY PRN ; Protocol PRN Reason: Per Protocol Miscellaneous Information (Potassium Per Protocol) 1 each MISCELLANE DAILY PRN ; Protocol PRN Reason: Per Protocol Mupirocin (Bactroban Oint) 1 applic NASAL BID [facility] Stop: 02/25/17 21:01 Last Admin: 02/23/17 20:27 Dose: 1 applic Ondansetron HCl (Zofran) 4 mg IVP Q6HR PRN PRN Reason: Nausea And Vomiting Pantoprazole Sodium (Protonix) 40 mg PO AC-BRKFST [facility] Senna/Docusate Sodium (Senokot-S) 2 each PO HS [facility] Last Admin: 02/23/17 20:35 Dose: 2 each Sodium Chloride (Saline Flush) 10 ml IV BID [facility] Last Admin: 02/23/17 20:27 Dose: 10 ml Plan: 1. Continue aspirin, statin, Plavix, heparin subcu, his metoprolol will be increased to 25 mg by mouth twice a day. 2. We will give Lasix 20 mg IV 1 now. 3. We will discontinue Cordis, and maintain a peripheral IV. Saline lock IV fluids. 4. We will increase his amlodipine to 5 mg by mouth daily at noon. 5. Encourage use of his incentive spirometry every hour while awake. 6. Right pleural and mediastinal chest tubes will be removed today, his left pleural chest tube will remain in place to low continuous wall suction. 7. Wean oxygen as tolerated, pulmonary management per Dr. Lew's recommendations. 8. Blood sugar management per primary care service. 9. GI and DVT prophylaxis in place. 10. Left arm and left leg TITA drain will be removed today. 11. The patient will be transferred to [address] [place] [address] for further monitoring and rehabilitation. 12. Further recommendations as patient progresses. Right pleural and mediastinal chest tubes removed without incident at 10:15 AM. Sutures secured in place, folded 4 x 4 dressing to cover and secured with tape.
[2017-02-24] MEDS: amLODIPine 5 MG TAB PO SCH (11:17)
--- NOTE | 2017-02-24 11:45 | PN ---
Mr. Tamez is a 51-year-old male who has underwent coronary bypass grafting. He is feeling well. His urine output was a little bit on the slow side, but better now. He is in sinus mechanism. He has no evidence of tachy or bradyarrhythmia. Hemodynamically, he is stable. His blood pressure is stable. He continues to be at this time on amlodipine 5 mg daily, aspirin once a day, Lipitor 40 mg daily, Plavix 75 mg daily, metoprolol tartrate 25 mg twice a day. PHYSICAL EXAMINATION: Blood pressure 123/60 with a heart rate in the 70s. LUNGS: No wheezes with mild decrease in breath sounds. HEART: Regular rate and rhythm. S1, S2, no S3, no rub appreciated. ABDOMEN: Soft, nontender. EXTREMITIES: Trace edema. Lab data revealed a hemoglobin of 10.6, BUN and creatinine 19 and 0.9. Chest x-ray revealed no evidence of infiltrate with mild atelectasis. IMPRESSION: 1. Status post coronary artery bypass grafting. 2. History of cardiomyopathy. 3. Hypertension. 4. Hyperlipidemia. RECOMMENDATION: Will continue present therapy. If his pressure is stable by tomorrow, I will add HOMAR inhibitor to his regimen. Otherwise, I will continue incentive spirometry and increase in his level of activity.
--- NOTE | 2017-02-24 11:47 | P.PN ---
Subjective Principal diagnosis: Status post CABG for severe coronary artery disease. Postoperative day #2 his is a 51-year-old white male who was recently seen by Dr. Sparrow for symptoms of chest pain, cardiac catheterization done recently showed occluded right coronary artery as well as occluded left circumflex and significant obstructive disease involving the left anterior descending artery. Ejection fraction was about 40-45%. On 02/22/2017, patient underwent surgical intervention with GARCIA to LAD and left radial as Y graft from the GARCIA to the second obtuse marginal branch and saphenous vein graft to the PDA. Postoperatively, patient was on mechanical ventilation, and I was asked to see him on consultation. 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 Patient is presently on nasal cannula, in no distress, he is hemodynamically stable. Chest x-ray is suggestive of a small pneumothorax at the left cardiac border. Patient was reevaluated today on 02/24/2017, continues to do quite well, urine output was poor earlier today, but he responded well to Lasix. Chest x-ray showed minimal bibasilar atelectasis left more so than right, patient is not doing too great with incentive spirometry, remains on 5 L nasal cannula high flow. No evidence of infiltrate on the chest x-ray, but he definitely has some left basilar atelectasis. Labs showed hemoglobin of 10.6, basic metabolic profile is relatively normal. And normal renal profile noted. Objective - Vital Signs Vital signs: Vital Signs Temp 98.2 F 02/24/17 09:00 Pulse 89 02/24/17 11:00 Resp 20 02/24/17 11:00 BP 153/90 02/22/17 05:53 Pulse Ox 96 02/24/17 11:00 Intake & Output 02/23/17 02/24/17 02/24/17 18:59 06:59 18:59 Intake Total 948.697 797.04 107 Output Total 1108 1266 891 Balance -159.303 -468.96 -784 Weight 94.4 kg 89.5 kg Intake: IV 232 72 27 0.9 FOR CO/CI 60 0.9 FOR PRESSURE BAG AT 3 72 72 27 CC/HR Kefzol 100 Intake, IV Titration 716.697 485.04 80 Amount ACETAMINOPHEN IV (For NPO 100 ) 1,000 mg In Empty Bag 1 bag @ 400 mls/hr IVPB Q6HR [facility] Rx#:[id number] Dexmedetomidine 400 mcg 4.5 In Empty Bag 1 bag @ Per Protocol IV .Q0M [facility] Rx#: [id number] Insulin Regular 100 unit 6.197 5.04 In Sodium Chloride 0.9% 100 ml @ Per Protocol IV .Q0M [facility] Rx#:[id number] Lactated Ringers 1,000 ml 600 480 80 @ 20 mls/hr IV .Q24H [facility] Rx#:[id number] Nitroglycerin-D5w Pmx 50 6.0 mg In Dextrose/Water 1 250ml.bag @ 5 MCG/MIN 1.5 mls/hr IV .Q24H [facility] Rx#: [id number] Oral 240 Output: Chest Tube Drainage 441 226 68 Chest Tube Left Upper 290 160 50 Anterior Chest Chest Tube Mediastinal 80 30 10 Chest Tube Right Anterior 71 36 8 Chest Drainage 100 0 Left Lower Calf 80 Left Lower Wrist 20 0 Urine 567 1040 823 Other: Voiding Method Indwelling Catheter Indwelling Catheter Indwelling Catheter ABP, PAP, CO, CI - Last Documented Arterial Blood Pressure 157/87 Pulmonary Artery Pressure 43/20 Cardiac Output 7 Cardiac Index 3.5 - Exam Physical Exam: Revealed a 51-year-old in no distress, on nasal cannula. HEENT:[Neck is supple.] [No neck masses.] [No thyromegaly.] [No JVD.] Chest: [Diminished breath sounds at the bases no crackles or rhonchi or wheezes] Cardiac Exam: [Normal S1 and S2, no S3 gallop, no murmur.] Abdomen: [Soft, nontender, no megaly, no rebound, no guarding, normal bowel sounds.] Extremities: [No clubbing, no edema, no cyanosis.] Neurological Exam: [No focal neurologic deficit.] - Labs CBC & Chem 7: 02/24/17 04:25 02/24/17 04:25 Labs: Abnormal Lab Results - Last 24 Hours (Table) 02/23/17 02/23/17 02/23/17 Range/Units 12:03 12:15 14:07 WBC (3.8-10.6) k/uL RBC (4.30-5.90) m/uL Hgb (13.0-17.5) gm/dL Hct (39.0-53.0) % Plt Count (150-450) k/uL Neutrophils # (1.3-7.7) k/uL Chloride (98-107) mmol/L Glucose (74-99) mg/dL POC Glucose (mg/dL) 124 H 128 H 120 H (75-99) mg/dL Calcium (8.4-10.2) mg/dL Total Protein (6.3-8.2) g/dL Albumin (3.5-5.0) g/dL 02/23/17 02/23/17 02/23/17 Range/Units 16:35 17:59 20:11 WBC (3.8-10.6) k/uL RBC (4.30-5.90) m/uL Hgb (13.0-17.5) gm/dL Hct (39.0-53.0) % Plt Count (150-450) k/uL Neutrophils # (1.3-7.7) k/uL Chloride (98-107) mmol/L Glucose (74-99) mg/dL POC Glucose (mg/dL) 120 H 113 H 121 H (75-99) mg/dL Calcium (8.4-10.2) mg/dL Total Protein (6.3-8.2) g/dL Albumin (3.5-5.0) g/dL 02/23/17 02/24/17 02/24/17 Range/Units 22:09 00:21 02:31 WBC (3.8-10.6) k/uL RBC (4.30-5.90) m/uL Hgb (13.0-17.5) gm/dL Hct (39.0-53.0) % Plt Count (150-450) k/uL Neutrophils # (1.3-7.7) k/uL Chloride (98-107) mmol/L Glucose (74-99) mg/dL POC Glucose (mg/dL) 130 H 126 H 113 H (75-99) mg/dL Calcium (8.4-10.2) mg/dL Total Protein (6.3-8.2) g/dL Albumin (3.5-5.0) g/dL 02/24/17 02/24/17 02/24/17 Range/Units 04:25 04:25 04:25 WBC 11.3 H (3.8-10.6) k/uL RBC 3.65 L (4.30-5.90) m/uL Hgb 10.6 L (13.0-17.5) gm/dL Hct 32.1 L (39.0-53.0) % Plt Count 123 L (150-450) k/uL Neutrophils # 8.7 H (1.3-7.7) k/uL Chloride 109 H (98-107) mmol/L Glucose 109 H (74-99) mg/dL POC Glucose (mg/dL) 115 H (75-99) mg/dL Calcium 8.0 L (8.4-10.2) mg/dL Total Protein 5.1 L (6.3-8.2) g/dL Albumin 3.1 L (3.5-5.0) g/dL 02/24/17 02/24/17 02/24/17 Range/Units 06:25 08:06 10:13 WBC (3.8-10.6) k/uL RBC (4.30-5.90) m/uL Hgb (13.0-17.5) gm/dL Hct (39.0-53.0) % Plt Count (150-450) k/uL Neutrophils # (1.3-7.7) k/uL Chloride (98-107) mmol/L Glucose (74-99) mg/dL POC Glucose (mg/dL) 103 H 128 H 127 H (75-99) mg/dL Calcium (8.4-10.2) mg/dL Total Protein (6.3-8.2) g/dL Albumin (3.5-5.0) g/dL Assessment and Plan Plan: Impression: 1 status post CABG, postoperative day #2 2 postoperative atelectasis, mostly involving the left lower lobe. Patient will continue with incentive spirometry and instructed to use it more frequently. 3 multiple comorbidities including hypertension, hyperlipidemia, ischemic cardiomyopathy, and previous history of smoking. Recommendation: Continue present treatment plan including incentive spirometry, bronchodilators, early ambulation, patient will likely transfer to a monitor had on selective today. We'll continue to follow. Time with Patient: Less than 30
--- NOTE | 2017-02-24 12:15 | P.PN ---
Subjective Principal diagnosis: Patient is doing well today. No events overnight. He was up with physical therapy when I saw him. Objective - Vital Signs Vital signs: Vital Signs Temp 98.2 F 02/24/17 09:00 Pulse 89 02/24/17 11:00 Resp 20 02/24/17 11:00 BP 153/90 02/22/17 05:53 Pulse Ox 96 02/24/17 11:00 Intake & Output 02/23/17 02/24/17 02/24/17 18:59 06:59 18:59 Intake Total 948.697 797.04 107 Output Total 1108 1266 891 Balance -159.303 -468.96 -784 Weight 94.4 kg 89.5 kg Intake: IV 232 72 27 0.9 FOR CO/CI 60 0.9 FOR PRESSURE BAG AT 3 72 72 27 CC/HR Kefzol 100 Intake, IV Titration 716.697 485.04 80 Amount ACETAMINOPHEN IV (For NPO 100 ) 1,000 mg In Empty Bag 1 bag @ 400 mls/hr IVPB Q6HR [facility] Rx#:[id number] Dexmedetomidine 400 mcg 4.5 In Empty Bag 1 bag @ Per Protocol IV .Q0M [facility] Rx#: [id number] Insulin Regular 100 unit 6.197 5.04 In Sodium Chloride 0.9% 100 ml @ Per Protocol IV .Q0M [facility] Rx#:[id number] Lactated Ringers 1,000 ml 600 480 80 @ 20 mls/hr IV .Q24H [facility] Rx#:[id number] Nitroglycerin-D5w Pmx 50 6.0 mg In Dextrose/Water 1 250ml.bag @ 5 MCG/MIN 1.5 mls/hr IV .Q24H [facility] Rx#: [id number] Oral 240 Output: Chest Tube Drainage 441 226 68 Chest Tube Left Upper 290 160 50 Anterior Chest Chest Tube Mediastinal 80 30 10 Chest Tube Right Anterior 71 36 8 Chest Drainage 100 0 Left Lower Calf 80 Left Lower Wrist 20 0 Urine 567 1040 823 Other: Voiding Method Indwelling Catheter Indwelling Catheter Indwelling Catheter ABP, PAP, CO, CI - Last Documented Arterial Blood Pressure 157/87 Pulmonary Artery Pressure 43/20 Cardiac Output 7 Cardiac Index 3.5 - Exam General: The patient is awake and alert, in no distress Eye: there is normal conjunctiva bilaterally. Neck: The neck is supple, there is no JVD. Cardiovascular: Normal S1-S2, no S3-S4, no murmurs. Respiratory: Lungs clear to auscultation bilaterally Gastrointestinal: Abdomen is soft, nontender Musculoskeletal: There is no pedal edema. Neurological:. Speech is normal. Skin: Skin is warm and dry - Labs CBC & Chem 7: 02/24/17 04:25 02/24/17 04:25 Labs: Abnormal Lab Results - Last 24 Hours (Table) 02/23/17 02/23/17 02/23/17 Range/Units 12:15 14:07 16:35 WBC (3.8-10.6) k/uL RBC (4.30-5.90) m/uL Hgb (13.0-17.5) gm/dL Hct (39.0-53.0) % Plt Count (150-450) k/uL Neutrophils # (1.3-7.7) k/uL Chloride (98-107) mmol/L Glucose (74-99) mg/dL POC Glucose (mg/dL) 128 H 120 H 120 H (75-99) mg/dL Calcium (8.4-10.2) mg/dL Total Protein (6.3-8.2) g/dL Albumin (3.5-5.0) g/dL 02/23/17 02/23/17 02/23/17 Range/Units 17:59 20:11 22:09 WBC (3.8-10.6) k/uL RBC (4.30-5.90) m/uL Hgb (13.0-17.5) gm/dL Hct (39.0-53.0) % Plt Count (150-450) k/uL Neutrophils # (1.3-7.7) k/uL Chloride (98-107) mmol/L Glucose (74-99) mg/dL POC Glucose (mg/dL) 113 H 121 H 130 H (75-99) mg/dL Calcium (8.4-10.2) mg/dL Total Protein (6.3-8.2) g/dL Albumin (3.5-5.0) g/dL 02/24/17 02/24/17 02/24/17 Range/Units 00:21 02:31 04:25 WBC (3.8-10.6) k/uL RBC (4.30-5.90) m/uL Hgb (13.0-17.5) gm/dL Hct (39.0-53.0) % Plt Count (150-450) k/uL Neutrophils # (1.3-7.7) k/uL Chloride 109 H (98-107) mmol/L Glucose 109 H (74-99) mg/dL POC Glucose (mg/dL) 126 H 113 H (75-99) mg/dL Calcium 8.0 L (8.4-10.2) mg/dL Total Protein 5.1 L (6.3-8.2) g/dL Albumin 3.1 L (3.5-5.0) g/dL 02/24/17 02/24/17 02/24/17 Range/Units 04:25 04:25 06:25 WBC 11.3 H (3.8-10.6) k/uL RBC 3.65 L (4.30-5.90) m/uL Hgb 10.6 L (13.0-17.5) gm/dL Hct 32.1 L (39.0-53.0) % Plt Count 123 L (150-450) k/uL Neutrophils # 8.7 H (1.3-7.7) k/uL Chloride (98-107) mmol/L Glucose (74-99) mg/dL POC Glucose (mg/dL) 115 H 103 H (75-99) mg/dL Calcium (8.4-10.2) mg/dL Total Protein (6.3-8.2) g/dL Albumin (3.5-5.0) g/dL 02/24/17 02/24/17 Range/Units 08:06 10:13 WBC (3.8-10.6) k/uL RBC (4.30-5.90) m/uL Hgb (13.0-17.5) gm/dL Hct (39.0-53.0) % Plt Count (150-450) k/uL Neutrophils # (1.3-7.7) k/uL Chloride (98-107) mmol/L Glucose (74-99) mg/dL POC Glucose (mg/dL) 128 H 127 H (75-99) mg/dL Calcium (8.4-10.2) mg/dL Total Protein (6.3-8.2) g/dL Albumin (3.5-5.0) g/dL Assessment and Plan Plan: 1. Postoperative day #2 status post elective triple coronary artery bypass grafting 2. Essential hypertension: Blood pressure well-controlled 3. Ischemic cardiomyopathy with estimated ejection fraction of 40%: Appears to be compensated 4. Tobacco abuse, patient counseled extensively. Time spent approximately 5 minutes. He said that he is willing to quit smoking. 5. History of right transverse process fracture of L1 and L2 with chronic low back pain 6. Vitamin D deficiency Today, I reviewed his medication list and lab work results. Continue postoperative care as per cardiac surgery. Optimize medical management. Discontinue insulin drip and continue sliding scale. Continue ICU care. Repeat lab work in the morning.
[2017-02-24] MEDS: INSULIN LISPRO (humaLOG) 300 UNIT/3 ML VIAL SQ SCH ×3 (12:40→21:08)
--- NOTE | 2017-02-24 15:42 | CDI ---
In responding to this query, please exercise your independent professional judgment. The [facility] Coding Staff and Clinical Documentation Specialists appreciate your assistance in clarifying documentation, maintaining compliance with coding guidelines, accurately documenting patients condition and capturing severity of illness. The fact that a question is asked does not imply that any particular answer is desired or expected. Communication forms are a method of clarifying documentation and are not made part of the Legal Health Record. Thank you in advance for your clarification. Last Revision, Oct 2016 Jaimie Bae [address] [place] [address] Documentation Clarification Form 2nd Request Date: 02/23/2017 1:29:00 PM From: Lizette Jacobo RN, CCDS Admit Date: 02/22/2017 5:40:00 AM Patient Name: Sy Tamez Visit Number: [id number] Dr. Yves Villafuerte/ Raissa Hart CNP Post-operative atelectasis is documented in the pulmonary consult. 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 Include clinical findings that support your diagnosis. FYI: Press F11 to launch patient chart ___x__ Place X here if this finding has no clinical significance, is not applicable or if you are not able to provide any additional documentation. KALYN
[2017-02-24 17:37] LABS: Glucose,Whole Blood 99 mg/dL (75-99)
[2017-02-24] MEDS: SENNOSIDES-DOCUSATE SODIUM 1 EACH TAB PO SCH (21:03)
[2017-02-24 21:10] LABS: Glucose,Whole Blood 98 mg/dL (75-99)
[2017-02-25 04:47] LABS: Basophils % (A) 0 %; CH 28.5; CHCM 31.7; Eosinophils # (A) 0.1 k/uL (0-0.7); Eosinophils % (A) 1 %; HDW 2.44; HGB 10.9 gm/dL (13.0-17.5); Luc # (Auto) 0.16; Luc % (Auto) 2; Lymphocytes # (A) 1.8 k/uL (1.0-4.8); Lymphocytes % (A) 19 %; MCHC 32.1 g/dL (31.0-37.0); MCV 90.5 fL (80.0-100.0); Mean Platelet Volume 7.8; Monocytes # (A) 0.5 k/uL (0-1.0); Monocytes % (A) 5 %; Neutrophils # (A) 6.5 k/uL (1.3-7.7); Neutrophils % (A) 72 %; RBC 3.76 m/uL (4.30-5.90); RDW 13.9 % (11.5-15.5); WBC 9.1 k/uL (3.8-10.6); WBC (Perox) 9.73
[2017-02-25 05:12] LABS: ALT 35 U/L (21-72); AST 36 U/L (17-59); Alkaline Phosphatase 67 U/L (38-126); Anion Gap 9 mmol/L; Blood Urea Nitrogen 18 mg/dL (9-20); Calcium 8.2 mg/dL (8.4-10.2); Carbon Dioxide 27 mmol/L (22-30); Chloride 106 mmol/L (98-107); Glucose 94 mg/dL (74-99); Magnesium 2.2 mg/dL (1.6-2.3); Non-African American GFR(MDRD) >60 (>60 ml/min/1.73 sqM); Potassium 3.9 mmol/L (3.5-5.1); Sodium 142 mmol/L (137-145); Total Bilirubin 0.9 mg/dL (0.2-1.3); Total Protein 5.4 g/dL (6.3-8.2)
[2017-02-25] MEDS: KETOROLAC 30 MG/ML 1 ML VIAL IVP SCH ×3 (06:28→18:32)
[2017-02-25] MEDS ORDERED: POTASSIUM CHLORIDE ER 20 MEQ TAB.ER PO SCH (07:00)
[2017-02-25] MEDS: IPRATROPIUM-ALBUTEROL 3 ML NEB INHALATION SCH ×4 (07:35→20:26)
--- NOTE | 2017-02-25 07:41 | XR ---
EXAMINATION TYPE: XR chest 1V portable DATE OF EXAM: 02/25/2017 COMPARISON: Prior chest x-ray 02/24/2017 HISTORY: Postop cardiac surgery TECHNIQUE: Single frontal view of the chest is obtained. FINDINGS: The patient is post median sternotomy, the heart remains enlarged. Left-sided chest tube r emains in place, there are overlying cardiac leads. Postop change noted at the level of the mandible. No pneumothorax or pleural effusion is evident. Patchy basilar density is noted. Right-sided chest t ube has been removed. Epicardial pacing leads remain present. Right jugular central venous sheath has been removed. IMPRESSION: No evident complication status post chest tube removal.
[2017-02-25 07:42] LABS: Glucose,Whole Blood 95 mg/dL (75-99)
--- NOTE | 2017-02-25 08:37 | P.PN ---
Addendum entered and electronically signed by Bruno Castillo RNFA 02/25/17 10: 36: Atrial and ventricular epicardial pacemaker wires removed without incident. The patient will be on bed rest for one hour post pacemaker wire removal. Left pleural chest tube removed without incident. Suture secured in place. A folded 4 [address] over site and secured with tape. Original Note: <Bruno Castillo - Last Filed: 02/25/17 08:32> Progress Note - Text CV Surgery Nursing Principal diagnosis: Triple-vessel coronary artery disease, stable angina, mild to moderate left ventricular dysfunction, mild mitral valve regurgitation, hypertension, hyperlipidemia, tobacco abuse, postoperative atelectasis an expected post surgical condition. POD #3, status post elective triple coronary artery bypass grafting using the left internal mammary artery to the left anterior descending coronary artery, left radial artery taken as a Y graft from the left internal mammary artery and anastomosed to the second obtuse marginal coronary artery, a reverse greater saphenous vein graft from the aorta to the posterior descending coronary artery. Endoscopic harvesting of the left radial artery, endoscopic harvesting of the left greater saphenous vein, and intraoperative transesophageal echocardiogram and epi-aortic scanning. Patient awake and alert, no distress noted, no specific complaints. He is sitting up to the bedside chair, he reports he feels much improved today. Vital Signs: Afebrile Vital Signs - 24 hr 02/24/17 02/24/17 02/24/17 08:00 08:30 08:48 Temperature Pulse Rate 90 77 78 Pulse Rate [ Developer Evangelist ] Respiratory 27 H 13 Rate Blood Pressure [Right Arm] O2 Sat by Pulse 82 L 97 Oximetry 02/24/17 02/24/17 02/24/17 09:00 09:30 10:00 Temperature 98.2 F Pulse Rate 23 L 82 86 Pulse Rate [ Developer Evangelist ] Respiratory 18 16 27 H Rate Blood Pressure [Right Arm] O2 Sat by Pulse 96 96 94 L Oximetry 02/24/17 02/24/17 02/24/17 10:30 11:00 12:00 Temperature 98.3 F Pulse Rate 86 89 Pulse Rate [ 81 Developer Evangelist ] Respiratory 16 20 23 Rate Blood Pressure 132/80 [Right Arm] O2 Sat by Pulse 92 L 96 92 L Oximetry 02/24/17 02/24/17 02/24/17 12:14 12:29 16:00 Temperature 98.2 F Pulse Rate 74 77 Pulse Rate [ 80 Developer Evangelist ] Respiratory 23 Rate Blood Pressure 140/81 [Right Arm] O2 Sat by Pulse 98 Oximetry 02/24/17 02/24/17 02/24/17 16:20 16:39 17:07 Temperature Pulse Rate 81 83 Pulse Rate [ Developer Evangelist ] Respiratory Rate Blood Pressure [Right Arm] O2 Sat by Pulse 91 L Oximetry 02/24/17 02/25/17 02/25/17 20:00 00:00 04:00 Temperature 99.1 F 98.7 F 98.1 F Pulse Rate Pulse Rate [ 88 114 H 82 Developer Evangelist ] Respiratory 22 22 17 Rate Blood Pressure 150/88 163/92 132/93 [Right Arm] O2 Sat by Pulse 93 L 95 94 L Oximetry 02/25/17 07:35 Temperature Pulse Rate Pulse Rate [ Developer Evangelist ] Respiratory Rate Blood Pressure [Right Arm] O2 Sat by Pulse 95 Oximetry Labs: Short CBC 02/25/17 Range/Units 04:35 WBC 9.1 (3.8-10.6) k/uL Hgb 10.9 L (13.0-17.5) gm/dL Hct 34.0 L (39.0-53.0) % Plt Count 136 L (150-450) k/uL Neutrophils # 6.5 (1.3-7.7) k/uL BMP 02/25/17 04:35 Sodium 142 Potassium 3.9 Chloride 106 Carbon Dioxide 27 BUN 18 Creatinine 0.80 Glucose 94 Calcium 8.2 L Liver Function 02/25/17 Range/Units 04:35 Total Bilirubin 0.9 (0.2-1.3) mg/dL AST 36 (17-59) U/L ALT 35 (21-72) U/L Alkaline Phosphatase 67 (38-126) U/L Albumin 3.1 L (3.5-5.0) g/dL Lungs: Essentially clear throughout, diminished to his bilateral bases. Respirations are symmetrical and nonlabored. O2 sat: 100% on 3 L nasal cannula, 90% on room air. I/S: 750 mL to 1000 mL, reviewed with the patient important of using his incentive spirometry every hour while awake. The patient did give a good return demonstration on his incentive spirometry. Heart: S1S2, regular rhythm and rate, negative for S3, gallop or murmur. Bedside telemetry showing normal sinus rhythm heart rate 85. Sternum stable, chest incision clean with Dermabond dressing clean and dry. Heart hugger in place, he is demonstrating appropriate use of his heart hugger. Atrial and ventricular epicardial pacemaker wires intact and grounded. Left arm incisions clean dry and well approximated. No drainage noted. Positive palpable ulnar pulse. His hand is warm to touch. Left leg incision clean dry and well approximated. No drainage noted. Knee-high KALIE hose and sequential compression devices in place to his bilateral lower extremities. Abdomen: Soft, nontender. Positive bowel sounds present in all 4 quadrants. Patient reports he had 2 bowel movements last night. CBGs: 98-127 mg/dL in the last 24 hours. U/O: Adequate. Chest Tubes: Left pleural chest tube without air leak, remains to low continuous wall suction at -20 cm H2O. Draining thin serosanguineous drainage. 60 mL output in the last 8 hours, 110 mL output in the last 24 hours. 24 hr Total: Intake & Output 02/23/17 02/24/17 02/25/17 02/26/17 06:59 06:59 06:59 06:59 Intake Total 2780.065 1745.737 407 Output Total 4600 2374 1377 Balance -1819.935 -628.263 -970 Weight 94.4 kg 89.5 kg 89.4 kg Active Medications Hydrocodone Bitart/Acetaminophen ([place] 5-325) 2 each PO Q4HR PRN PRN Reason: Severe Pain Last Admin: 02/24/17 06:40 Dose: 2 each Hydrocodone Bitart/Acetaminophen ([place] 5-325) 1 each PO Q4HR PRN PRN Reason: Moderate Pain Last Admin: 02/24/17 11:17 Dose: 1 each Albuterol/Ipratropium (Duoneb 0.5 Mg-3 Mg/3 Ml Soln) 3 ml INHALATION RT-QID MADHURI Last Admin: 02/25/17 07:35 Dose: Not Given Albuterol/Ipratropium (Duoneb 0.5 Mg-3 Mg/3 Ml Soln) 3 ml INHALATION RT-Q2H PRN PRN Reason: Shortness Of Breath Or Wheezing Amlodipine Besylate (Norvasc) 5 mg PO DAILY@1200 MADHURI Last Admin: 02/24/17 11:17 Dose: 5 mg Aspirin (Aspirin) 325 mg PO DAILY [facility] Last Admin: 02/24/17 08:10 Dose: 325 mg Atorvastatin Calcium (Lipitor) 40 mg PO DAILY [facility] Last Admin: 02/24/17 08:10 Dose: 40 mg Bisacodyl (Dulcolax) 10 mg RECTAL DAILY PRN PRN Reason: Constipation Clopidogrel Bisulfate (Plavix) 75 mg PO DAILY [facility] Last Admin: 02/24/17 08:09 Dose: 75 mg Heparin Sodium (Porcine) (Heparin) 5,000 unit SQ Q8HR [facility] Last Admin: 02/24/17 23:47 Dose: 5,000 unit Insulin Human Lispro (Humalog) 0 unit SQ ACHS [facility] PRN Reason: Protocol Last Admin: 02/24/17 21:08 Dose: Not Given Ketorolac Tromethamine (Toradol) 15 mg IVP Q6HR [facility] Stop: 02/27/17 13:45 Last Admin: 02/25/17 06:28 Dose: 15 mg Magnesium Hydroxide (Milk Of Magnesia) 2,400 mg PO BID PRN PRN Reason: Constipation Metoclopramide HCl (Reglan) 10 mg IVP Q4H PRN PRN Reason: Nausea And Vomiting Metoprolol Tartrate (Lopressor) 25 mg PO BID [facility] Last Admin: 02/24/17 21:03 Dose: 25 mg Miscellaneous Information (Magnesium Per Protocol) 1 each MISCELLANE DAILY PRN ; Protocol PRN Reason: Per Protocol Miscellaneous Information (Phosphorus Per Protocol) 1 each MISCELLANE DAILY PRN ; Protocol PRN Reason: Per Protocol Miscellaneous Information (Potassium Per Protocol) 1 each MISCELLANE DAILY PRN ; Protocol PRN Reason: Per Protocol Mupirocin (Bactroban Oint) 1 applic NASAL BID [facility] Stop: 02/25/17 21:01 Last Admin: 02/24/17 21:04 Dose: 1 applic Ondansetron HCl (Zofran) 4 mg IVP Q6HR PRN PRN Reason: Nausea And Vomiting Last Admin: 02/24/17 23:47 Dose: 4 mg Pantoprazole Sodium (Protonix) 40 mg PO AC-BRKFST [facility] Last Admin: 02/24/17 08:09 Dose: 40 mg Senna/Docusate Sodium (Senokot-S) 2 each PO HS [facility] Last Admin: 02/24/17 21:03 Dose: 2 each Sodium Chloride (Saline Flush) 10 ml IV BID MADHURI Last Admin: 02/24/17 21:04 Dose: 10 ml Plan: 1. Continue aspirin, statin, Plavix, heparin subcu, his metoprolol will be increased to 50 mg by mouth twice a day. 2. We will give Lasix 20 mg IV 1 now. 3. Wean oxygen as tolerated, pulmonary management per Dr. Lew's recommendations. 4. We will continue his amlodipine 5 mg by mouth daily at noon. 5. Encourage use of his incentive spirometry every hour while awake. 6. Left pleural chest tubes will be removed today. 7. Blood sugar management per primary care service. 8. GI and DVT prophylaxis in place. 9. The patient will be transferred to [address] [place] [address] for further monitoring and rehabilitation when a bed is available. 10. We will pull his epicardial pacemaker wires today, bedrest for one hour post pacemaker wire removal. 11. Further recommendations as patient progresses. <Garry Tsai - Last Filed: 02/25/17 13:31> Progress Note - Text The patient was seen and examined. Agree with the above assessment and plan. Overall the patient looks good. His remaining chest tube and pacing wires were removed today. He was given a dose of Lasix. We will continue to wean his oxygen. He is ambulating in the hallway. We did increase his beta keyla. We are awaiting a bed for transfer to [facility]. He will likely be discharged home within the next 24-48 hours.
[2017-02-25] MEDS: HEPARIN SODIUM,PORCINE 5,000 UNIT/ML 1 ML VIAL SQ SCH ×2 (08:53→16:56)
[2017-02-25] MEDS: METOPROLOL TARTRATE 50 MG TAB PO SCH ×2 (08:54→20:56)
[2017-02-25] MEDS: ATORVASTATIN 40 MG TAB PO SCH (08:54)
[2017-02-25] MEDS: MUPIROCIN 2% OINT 22 GM TUBE NASAL SCH ×2 (08:54→20:57)
[2017-02-25] MEDS: ASPIRIN 325 MG TAB PO SCH (08:54)
[2017-02-25] MEDS: PANTOPRAZOLE 40 MG TABLET PO SCH (08:54)
[2017-02-25] MEDS: CLOPIDOGREL 75 MG TAB PO SCH (08:54)
[2017-02-25] MEDS ORDERED: FUROSEMIDE 10 MG/ML 2 ML VIAL IV ONE (09:00)
[2017-02-25] MEDS: INSULIN LISPRO (humaLOG) 300 UNIT/3 ML VIAL SQ SCH ×4 (09:05→20:57)
[2017-02-25 10:19] LABS: Glucose,Whole Blood 104 mg/dL (75-99)
--- NOTE | 2017-02-25 11:21 | P.PN ---
Subjective Principal diagnosis: Status post CABG for severe coronary artery disease. Postoperative day #3 his is a 51-year-old white male who was recently seen by Dr. Sparrow for symptoms of chest pain, cardiac catheterization done recently showed occluded right coronary artery as well as occluded left circumflex and significant obstructive disease involving the left anterior descending artery. Ejection fraction was about 40-45%. On 02/22/2017, patient underwent surgical intervention with GARCIA to LAD and left radial as Y graft from the GARCIA to the second obtuse marginal branch and saphenous vein graft to the PDA. Postoperatively, patient was on mechanical ventilation, and I was asked to see him on consultation. 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 Patient is presently on nasal cannula, in no distress, he is hemodynamically stable. Chest x-ray is suggestive of a small pneumothorax at the left cardiac border. Patient was reevaluated today on 02/24/2017, continues to do quite well, urine output was poor earlier today, but he responded well to Lasix. Chest x-ray showed minimal bibasilar atelectasis left more so than right, patient is not doing too great with incentive spirometry, remains on 5 L nasal cannula high flow. No evidence of infiltrate on the chest x-ray, but he definitely has some left basilar atelectasis. Labs showed hemoglobin of 10.6, basic metabolic profile is relatively normal. And normal renal profile noted. Patient was reevaluated today on 02/25/2017, doing much better, breathing easier , very compliant with incentive spirometry, however his effort seems to be a bit weak. Chest x-ray continues to show by basilar atelectasis left more so than right. Labs including CBC and basic metabolic profile are relatively normal renal profile is normal hemoglobin is 10.9. Patient remains on nasal cannula with O2 sat of 95% on 3 L nasal cannula. Objective - Vital Signs Vital signs: Vital Signs Temp 98.4 F 02/25/17 08:00 Pulse 87 02/25/17 08:00 Resp 18 02/25/17 08:00 BP 150/83 02/25/17 08:00 Pulse Ox 94 L 02/25/17 08:00 Intake & Output 02/24/17 02/25/17 02/25/17 18:59 06:59 18:59 Intake Total 107 300 Output Total 891 486 Balance -784 -186 Weight 89.4 kg Intake: IV 27 0.9 FOR PRESSURE BAG AT 3 27 CC/HR Intake, IV Titration 80 Amount Lactated Ringers 1,000 ml 80 @ 20 mls/hr IV .Q24H [facility] Rx#:[id number] Oral 300 Output: Chest Tube Drainage 68 60 Chest Tube Left Upper 50 60 Anterior Chest Chest Tube Mediastinal 10 Chest Tube Right Anterior 8 Chest Drainage 0 Left Lower Wrist 0 Urine 823 420 Stool 6 Other: Voiding Method Urinal Urinal Urinal ABP, PAP, CO, CI - Last Documented Arterial Blood Pressure 157/87 Pulmonary Artery Pressure 43/20 Cardiac Output 7 Cardiac Index 3.5 - Exam Physical Exam: Revealed a 51-year-old in no distress, on nasal cannula. HEENT:[Neck is supple.] [No neck masses.] [No thyromegaly.] [No JVD.] Chest: [Diminished breath sounds at the bases no crackles or rhonchi or wheezes] Cardiac Exam: [Normal S1 and S2, no S3 gallop, no murmur.] Abdomen: [Soft, nontender, no megaly, no rebound, no guarding, normal bowel sounds.] Extremities: [No clubbing, no edema, no cyanosis.] Neurological Exam: [No focal neurologic deficit.] - Labs CBC & Chem 7: 02/25/17 04:35 02/25/17 04:35 Labs: Abnormal Lab Results - Last 24 Hours (Table) 02/24/17 02/25/17 02/25/17 Range/Units 12:38 04:35 04:35 RBC 3.76 L (4.30-5.90) m/uL Hgb 10.9 L (13.0-17.5) gm/dL Hct 34.0 L (39.0-53.0) % Plt Count 136 L (150-450) k/uL POC Glucose (mg/dL) 104 H (75-99) mg/dL Calcium 8.2 L (8.4-10.2) mg/dL Total Protein 5.4 L (6.3-8.2) g/dL Albumin 3.1 L (3.5-5.0) g/dL Assessment and Plan Plan: Impression: 1 status post CABG, postoperative day #3 2 postoperative atelectasis, mostly involving the left lower lobe. Patient will continue with incentive spirometry and instructed to use it more frequently. 3 multiple comorbidities including hypertension, hyperlipidemia, ischemic cardiomyopathy, and previous history of smoking. Recommendation: Continue present treatment plan including incentive spirometry, bronchodilators, ambulation, patient will likely transfer to a monitor had on selective today. We'll continue to follow. Time with Patient: Less than 30
[2017-02-25 12:15] LABS: Glucose,Whole Blood 86 mg/dL (75-99)
--- NOTE | 2017-02-25 12:58 | P.PN ---
Subjective Patient is doing well today. No specific concerns or complaints. Objective - Vital Signs Vital signs: Vital Signs Temp 97.9 F 02/25/17 12:00 Pulse 75 02/25/17 12:00 Resp 18 02/25/17 12:00 BP 129/80 02/25/17 12:00 Pulse Ox 95 02/25/17 12:00 Intake & Output 02/24/17 02/25/17 02/25/17 18:59 06:59 18:59 Intake Total 107 300 Output Total 891 486 Balance -784 -186 Weight 89.4 kg Intake: IV 27 0.9 FOR PRESSURE BAG AT 3 27 CC/HR Intake, IV Titration 80 Amount Lactated Ringers 1,000 ml 80 @ 20 mls/hr IV .Q24H [facility] Rx#:[id number] Oral 300 Output: Chest Tube Drainage 68 60 Chest Tube Left Upper 50 60 Anterior Chest Chest Tube Mediastinal 10 Chest Tube Right Anterior 8 Chest Drainage 0 Left Lower Wrist 0 Urine 823 420 Stool 6 Other: Voiding Method Urinal Urinal Urinal ABP, PAP, CO, CI - Last Documented Arterial Blood Pressure 157/87 Pulmonary Artery Pressure 43/20 Cardiac Output 7 Cardiac Index 3.5 - Exam General: The patient is awake and alert, in no distress Eye: there is normal conjunctiva bilaterally. Neck: The neck is supple, there is no JVD. Cardiovascular: Normal S1-S2, no S3-S4, no murmurs. Respiratory: Lungs clear to auscultation bilaterally Gastrointestinal: Abdomen is soft, nontender Musculoskeletal: There is no pedal edema. Neurological:. Speech is normal. Skin: Skin is warm and dry - Labs CBC & Chem 7: 02/25/17 04:35 02/25/17 04:35 Labs: Abnormal Lab Results - Last 24 Hours (Table) 02/24/17 02/25/17 02/25/17 Range/Units 12:38 04:35 04:35 RBC 3.76 L (4.30-5.90) m/uL Hgb 10.9 L (13.0-17.5) gm/dL Hct 34.0 L (39.0-53.0) % Plt Count 136 L (150-450) k/uL POC Glucose (mg/dL) 104 H (75-99) mg/dL Calcium 8.2 L (8.4-10.2) mg/dL Total Protein 5.4 L (6.3-8.2) g/dL Albumin 3.1 L (3.5-5.0) g/dL Assessment and Plan Plan: 1. Postoperative day #3 status post elective triple coronary artery bypass grafting 2. Essential hypertension: Blood pressure well-controlled 3. Ischemic cardiomyopathy with estimated ejection fraction of 40%: Appears to be compensated 4. Tobacco abuse, patient counseled extensively. Time spent approximately 5 minutes. He said that he is willing to quit smoking. 5. History of right transverse process fracture of L1 and L2 with chronic low back pain 6. Vitamin D deficiency Today, I reviewed his medication list and lab work results. Continue postoperative care as per cardiac surgery. Optimize medical management. Continue sliding scale insulin. Continue ICU care. Repeat lab work in the morning.
[2017-02-25] MEDS: amLODIPine 5 MG TAB PO SCH (13:48)
[2017-02-25 17:18] LABS: Glucose,Whole Blood 109 mg/dL (75-99)
[2017-02-25] MEDS: SENNOSIDES-DOCUSATE SODIUM 1 EACH TAB PO SCH (20:57)
[2017-02-25 20:58] LABS: Glucose,Whole Blood 114 mg/dL (75-99)
--- NOTE | 2017-02-25 21:36 | PN ---
Mr. Tamez is a 51-year-old male with known history of coronary artery disease, cardiomyopathy, underwent coronary artery bypass grafting. He is doing quite well this morning. He is feeling better. His breathing is better. He denies any chest pain. He denies any dizziness, palpitation. He denies any nausea. He continues to be on: 1. Amlodipine 5 mg daily used for radial vasospasm. 2. He is on aspirin. 3. Lipitor 40 mg daily. 4. Plavix 75 mg daily. 5. ( ) mg twice a day. PHYSICAL EXAMINATION: Blood pressure 129/80 with a heart in the 70s. LUNGS: Clear. HEART: Regular rate rhythm. S1, S2. No S3. No rub appreciated. ABDOMEN: Soft, nontender. EXTREMITIES: Trace edema. Lab data revealed BUN and creatinine of 18 and 0.8, potassium 3.9. Hemoglobin of 10.9. IMPRESSION: 1. Status post coronary artery bypass grafting, stable. 2. Prior history of cardiomyopathy. 3. Hypertension. 4. Hyperlipidemia. RECOMMENDATION: I will add to his regimen a low-dose HOMAR inhibitor because of the cardiomyopathy; otherwise, continue the rest of his medical regimen. Increase his level of activity gradually. I would expect he should be able to be transferred to the telemetry floor soon and depending on his progress, further recommendation will be made.
[2017-02-26] MEDS: HEPARIN SODIUM,PORCINE 5,000 UNIT/ML 1 ML VIAL SQ SCH ×2 (00:14→08:27)
[2017-02-26] MEDS: KETOROLAC 30 MG/ML 1 ML VIAL IVP SCH ×2 (02:38→06:21)
[2017-02-26 03:12] LABS: Glucose,Whole Blood 99 mg/dL (75-99)
[2017-02-26 06:09] LABS: Glucose,Whole Blood 112 mg/dL (75-99)
[2017-02-26] MEDS: INSULIN LISPRO (humaLOG) 300 UNIT/3 ML VIAL SQ SCH ×2 (06:22→12:31)
[2017-02-26] MEDS: PANTOPRAZOLE 40 MG TABLET PO SCH (06:41)
[2017-02-26 06:44] LABS: Basophils % (A) 0 %; CH 28.8; CHCM 33.2; Eosinophils # (A) 0.2 k/uL (0-0.7); Eosinophils % (A) 2 %; HCT 33.5 % (39.0-53.0); HDW 2.62; Luc # (Auto) 0.27; Luc % (Auto) 3; Lymphocytes # (A) 1.7 k/uL (1.0-4.8); Lymphocytes % (A) 19 %; MCH 28.7 pg (25.0-35.0); MCHC 32.9 g/dL (31.0-37.0); MCV 87.4 fL (80.0-100.0); Mean Platelet Volume 7.4; Monocytes # (A) 0.7 k/uL (0-1.0); Monocytes % (A) 7 %; Neutrophils % (A) 69 %; RBC 3.83 m/uL (4.30-5.90); RDW 13.8 % (11.5-15.5); WBC 8.7 k/uL (3.8-10.6); WBC (Perox) 9.06
[2017-02-26 06:53] LABS: ALT 30 U/L (21-72); AST 27 U/L (17-59); Alkaline Phosphatase 77 U/L (38-126); Anion Gap 10 mmol/L; Blood Urea Nitrogen 20 mg/dL (9-20); Calcium 8.2 mg/dL (8.4-10.2); Carbon Dioxide 26 mmol/L (22-30); Chloride 106 mmol/L (98-107); Glucose 94 mg/dL (74-99); Non-African American GFR(MDRD) >60 (>60 ml/min/1.73 sqM); Potassium 3.3 mmol/L (3.5-5.1); Sodium 142 mmol/L (137-145); Total Bilirubin 1.2 mg/dL (0.2-1.3); Total Protein 5.6 g/dL (6.3-8.2)
--- NOTE | 2017-02-26 07:46 | P.PN ---
Subjective Principal diagnosis: Triple-vessel coronary artery disease. Stable angina. Mild to moderate left ventricular dysfunction. Mild mitral valve regurgitation. Hypertension. Hyperlipidemia. Tobacco abuse. POD #4 elective triple coronary artery bypass grafting using the left internal mammary artery to the left anterior descending artery, left radial artery taken as a Y graft from the left internal mammary artery and and system almost to the second obtuse marginal artery, reverse saphenous vein graft from the aorta to the posterior descending artery. Endoscopic harvesting of the left radial artery. Endoscopic harvesting of the left greater saphenous vein. Intraoperative transesophageal echocardiogram and epi-aortic scanning. Postoperative atelectasis, and expected post surgical condition. The patient is currently sitting up in bed in no acute distress. Denies chest pain, shortness of breath. Epicardial pacemaker wires and left pleural chest tube were removed yesterday, was transferred to [address] [place] [address] last night. Patient is hoping to be discharged to home today. Objective - Vital Signs Vital signs: Vital Signs Temp 97.2 F L 02/26/17 04:00 Pulse 90 02/26/17 04:00 Resp 18 02/26/17 04:00 BP 148/98 02/26/17 04:00 Pulse Ox 93 L 02/26/17 04:00 Intake & Output 02/25/17 02/26/17 02/26/17 18:59 06:59 18:59 Intake Total 180 490 Output Total 453 2 Balance -273 488 Weight 89.9 kg Intake: IV 20 Flush 20 Oral 180 470 Output: Urine 450 Stool 3 2 Other: Voiding Method Urinal Urinal # Voids 3 ABP, PAP, CO, CI - Last Documented Arterial Blood Pressure 157/87 Pulmonary Artery Pressure 43/20 Cardiac Output 7 Cardiac Index 3.5 - Constitutional General appearance: Present: cooperative - Respiratory Details: Lungs sounds diminished bilaterally. Respirations even, nonlabored. Currently on room air with oxygen saturation 93%. Able to achieve 1250 mL on his incentive spirometry. Effective cough. - Cardiovascular Details: S1, S2 present. Regular rate and rhythm, normal sinus rhythm on telemetry. Sternum stable. Heart hugger in place with patient demonstrating appropriate use. Teds/SCDs present. - Gastrointestinal Gastrointestinal Comment(s): Abdomen soft, nontender, nondistended. Active bowel sounds 4 quadrants. Tolerating diet. - Genitourinary Genitourinary Comment(s): Continues to void clear, yellow urine. - Integumentary Integumentary Comment(s): Anterior chest incision well approximated and covered with dry intact dressing. Left radial harvest site and left lower semi-EVH site well approximated. - Musculoskeletal Musculoskeletal: Present: gait normal, strength equal bilaterally - Psychiatric Psychiatric: Present: A&O x's 3, appropriate affect, intact judgment & insight - Allied health notes Allied health notes reviewed: nursing - Labs CBC & Chem 7: 02/26/17 05:55 02/26/17 05:53 Labs: Abnormal Lab Results - Last 24 Hours (Table) 02/24/17 02/25/17 02/25/17 Range/Units 12:38 17:17 20:56 RBC (4.30-5.90) m/uL Hgb (13.0-17.5) gm/dL Hct (39.0-53.0) % Potassium (3.5-5.1) mmol/L POC Glucose (mg/dL) 104 H 109 H 114 H (75-99) mg/dL Calcium (8.4-10.2) mg/dL Total Protein (6.3-8.2) g/dL Albumin (3.5-5.0) g/dL 02/26/17 02/26/17 02/26/17 Range/Units 05:53 05:55 06:07 RBC 3.83 L (4.30-5.90) m/uL Hgb 11.0 L (13.0-17.5) gm/dL Hct 33.5 L (39.0-53.0) % Potassium 3.3 L (3.5-5.1) mmol/L POC Glucose (mg/dL) 112 H (75-99) mg/dL Calcium 8.2 L (8.4-10.2) mg/dL Total Protein 5.6 L (6.3-8.2) g/dL Albumin 3.0 L (3.5-5.0) g/dL - Imaging and Cardiology Chest x-ray: image reviewed Assessment and Plan (1) Triple vessel coronary artery disease Status: Acute (2) Stable angina Status: Acute (3) Mitral valve regurgitation Status: Acute (4) Hypertension Status: Acute (5) Hyperlipidemia Status: Acute (6) Tobacco abuse Status: Acute Plan: 1. Continue aspirin, statin, Plavix, Norvasc, Lopressor, lisinopril. 2. Encourage incentive spirometry. 3. Increase activity, ambulate in hallway. Physical therapy following. 4. Diabetic management per primary care service. 5. GI/DVT prophylaxis. 6. All dressings to be removed, patient to shower today. 7. Likely to be discharged home this afternoon.
[2017-02-26] MEDS ORDERED: Potassium Replacement Protocol 1 EACH MISC MISCELLANE PRN (08:01)
--- NOTE | 2017-02-26 08:01 | XR ---
EXAMINATION TYPE: XR chest 2V DATE OF EXAM: 02/26/2017 COMPARISON: 02/25/2017 TECHNIQUE: PA and lateral views submitted. HISTORY: Postop CABG FINDINGS: Postsurgical change and cardiomegaly noted. No pneumothorax. No pleural effusion. Subsegmental consol idation noted involving both lung bases appears improved. Left-sided chest tube is been removed. IMPRESSION: 1. Postsurgical change with improving basilar atelectasis. 2. No pneumothorax post chest tube removal.
[2017-02-26] MEDS: ASPIRIN 325 MG TAB PO SCH (08:27)
[2017-02-26] MEDS: METOPROLOL TARTRATE 50 MG TAB PO SCH (08:27)
[2017-02-26] MEDS: CLOPIDOGREL 75 MG TAB PO SCH (08:27)
[2017-02-26] MEDS: ATORVASTATIN 40 MG TAB PO SCH (08:27)
[2017-02-26] MEDS: POTASSIUM CHLORIDE ER 20 MEQ TAB.ER PO SCH ×2 (08:31→10:44)
[2017-02-26] MEDS: IPRATROPIUM-ALBUTEROL 3 ML NEB INHALATION SCH ×2 (08:43→12:34)
[2017-02-26] MEDS ORDERED: LISINOPRIL 5 MG TAB PO SCH (09:00)
[2017-02-26 09:15] VITALS: RESP 20
--- NOTE | 2017-02-26 09:40 | P.DS ---
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 Consult: post cardiac surgery Do you want consulting provider notified?: Yes [facility] Course: FINAL DIAGNOSIS: 1.[ Triple-vessel coronary artery disease] 2.[ Stable angina] 3.[ Mild to moderate left ventricular dysfunction] 4.[ Mild mitral valve regurgitation] 5.[ Hypertension] 6.[ Hyperlipidemia] 7.[ Nicotine dependence] PRINCIPAL PROCEDURE: 1.[ Triple-vessel coronary artery bypass grafting using the left internal mammary artery to the left anterior descending coronary artery, a left radial artery taken as a Y graft from the left internal mammary artery and anastomosed to the second obtuse marginal coronary artery, a reverse greater saphenous vein graft from the aorta to the posterior descending coronary artery.] 2.[ Endoscopic harvesting of his left radial artery.] 3.[ Endoscopic harvesting of the left greater saphenous vein.] 4.[ Intraoperative transesophageal echocardiogram and epi-aortic scanning.] HISTORY OF PRESENT ILLNESS: [This is a 51-year-old gentleman who is followed by Dr. Masood Ortega on an outpatient basis has had recent complaints of episodes of chest pain with activity which has increased for approximately 6 weeks. Subsequently he was reevaluated by Dr. Garduno from cardiology associates and underwent an exercise treadmill stress test which was abnormal and consistent with ischemia. Due to his above-mentioned symptoms and abnormal stress test the patient was recommended to undergo a cardiac catheterization. On 02/18/2017 the patient underwent an elective cardiac catheterization which demonstrated severe triple vessel coronary artery disease, a 70% stenosis to his proximal left circumflex coronary artery, a totally occluded distal circumflex coronary artery, a tight 99% stenosis to his proximal left anterior descending coronary artery, and a totally occluded proximal portion of his right coronary artery. Also during heart catheterization a left ventriculography was completed which showed him to have a mildly impaired left ventricular systolic function with an ejection fraction of about 40-45%. For further evaluation the patient underwent a 2-D echocardiogram which showed moderate concentric left ventricular hypertrophy, mild pulmonic regurgitation, a normal aortic root size, mild aortic valve sclerosis, mild mitral valve regurgitation, mild tricuspid valve regurgitation, and a mild to moderately impaired left ventricular systolic function with an ejection fraction between 40 and 45%. Due to the patient's symptomatology and above mentioned diagnostic findings an elective coronary artery bypass grafting surgery was recommended. Dr. Villafuerte was consulted from cardiothoracic surgery. An extensive discussion was had with the patient, all risks and benefits were explained, and an elective coronary artery bypass grafting surgery date was agreed upon with the patient.] HOSPITAL COURSE:[ The patient was admitted to the hospital and was taken to the operating room where Dr. Villafuerte performed an elective triple-vessel coronary artery bypass grafting using the left internal mammary artery to the left anterior descending coronary artery, a left radial artery taken as a Y graft from the left internal mammary artery and anastomosed to the second obtuse marginal coronary artery, a reverse greater saphenous vein graft from the aorta to the posterior descending coronary artery. He also underwent endoscopic harvesting of his left radial artery, endoscopic harvesting of his left greater saphenous vein, and intraoperative transesophageal echocardiogram and epi- aortic scanning. The patient was subsequently transferred to the cardiovascular intensive care unit where he was recovered, monitored hemodynamically, and where he progressed to cardiac rehabilitation phase 1. He was extubated less than 24 hours after surgery, all lines, tubes, and drips were discontinued when appropriate, and he was subsequently transferred to [address] [place] [address] for further monitoring and rehabilitation. His oxygen was titrated down, he continued to work with physical therapy, and was ready to be discharged home with [facility] to follow on POD # 4. He received written and verbal instruction regarding his medications, activity restrictions , signs and symptoms requiring physician notification and follow-up appointments.] COMPLICATIONS: [There were no postoperative complications.] CONSULTATIONS: 1.[ Dr. Garduno for cardiology management] 2.[ Dr. Lew for pulmonary and ventilator management] 3.[ Dr. Ortega for medical management] DISCHARGE INSTRUCTIONS: 1. No driving for 4 weeks, or until physician gives their ok. 2. The patient should sleep in their own bed, no medical bed needed. 3. Stairs are not an issue. If the bedroom is upstairs, it is advised that the patient go up at night and down in the morning for the first week. Go slowly, using handrail and take 1 step at a time. 4. KALIE hose are to be worn for 30 days or until physician discontinues. 5. Heart hugger is to be worn 100% of the time until physician discontinues.( except when showering) 6. No lifting, pushing, or pulling more than 10 pounds for 12 weeks. The physician will advise of any restriction changes. 7. The patient is expected to continue the prescribed walking program. 8. Continue pain control per as needed orders. 9. Continue with incentive spirometry and splinting/heart hugger until otherwise directed by the physician. 10. Must shower daily using liquid antibacterial soap and a separate white washcloth for each individual incision. 11. Routine sternal incision care. No powders, lotions, ointments on incisions. 12. Please call surgeon/ROLL CHANGER for temp greater than 101 F or purulent drainage from incisions. 13. Smoking cessation was discussed with the patient and his smoking cessation pamphlet was offered to the patient. HOME HEALTH SERVICES TO PROVIDE: RN SKILLED HOME CARE SERVICES FOR POST-OP SURGICAL PATIENTS WITH THE FOLLOWING: Coronary Artery Bypass Surgery (CABG), Mitral Valve Replacement/ Repair ( MVR), Aortic Valve Replacement/Repair (AVR) RN TO CONTINUE EDUCATION FROM ``ROAD TO A HEALTH HEART PATIENT EDUCATION MANUAL (GIVEN TO PATIENT IN THE HOSPITAL) MEDICATION RECONCILIATION WITH EDUCATION NEEDED ON FIRST HOME VISIT EMPHASIZE IMPORTANCE OF WEARING BREAST SUPPORT/HEART HUGGER ENCOURAGE USE OF INCENTIVE SPIROMETER 10 X EVERY HOUR WHILE AWAKE ENCOURAGE UTILIZATION OF LOWER EXTREMITY COMPRESSION STOCKINGS/KALIE HOSE and ELEVATE LEGS ABOVE LEVEL OF HEART WHILE AT REST. ENCOURAGE AMBULATION 3-5x/day INCREASING TOLERATES, WHILE AVOID EXTREMES IN TEMPERATURE FREQUENCY: RN TO OPEN THE PATIENT WITHIN 24 HOURS OF DISCHARGE FROM THE HOSPITAL WITH TELEHEALTH INSTALLED AT [facility], RN TO VISIT 2-3 X A WEEK FOR 4 WEEKS ESTABLISHED BY PATIENT NEEDS. REMOVAL OF SUTURES: NURSING SERVICES TO REMOVE SUTURES TWO WEEKS POST SURGICAL DATE [ 03-08-17 ]. If any questions regarding suture removal please call the office at [phone]. LABORATORY: CBC, CMP TO BE DRAWN ON THE THIRD DAY HOME, Wednesday03/01/2017 (RAN STAT) FAX RESULTS TO [phone]. TELEHEALTH PARAMETERS: WEIGHT: NOTIFY MD OF WEIGHT GAIN OF 2 LBS IN 24 HOURS OR 5 LBS IN ONE WEEK HR: NOTIFY MD OF HR <55 BPM OR HR>100 BPM BP: NOTIFY MD IF BP <90/55 OR BP>140/100 O2 SAT: NOTIFY MD IF PO2<93% ON ROOM AIR SEND TELEHEALTH REPORT TO LAMP WIRER AND CARDIOVASCULAR SURGEON THE FIRST WEEK OF CARE AND THEN BI-WEEKLY. PLEASE ADDITIONALLY COMMUNICATE ANY ABNORMALS AND NEW FINDINGS TO THE SURGEONS OFFICE. Plan - Discharge Summary New Discharge Prescriptions: No Action HYDROcodone/APAP 5-325MG [Osmond 5-325] 1 tab PO DAILY PRN PRN Reason: Pain Ergocalciferol [Vitamin D2 (DRISDOL)] 50,000 unit PO SWAN amLODIPine [Norvasc] 10 mg PO DAILY Metoprolol Tartrate 25 mg PO BID Aspirin [Adult Low Dose Aspirin EC] 81 mg PO DAILY Atorvastatin [Lipitor] 80 mg PO DAILY Discharge Medication List Aspirin [Adult Low Dose Aspirin EC] 81 mg PO DAILY 02/17/17 [History] Ergocalciferol [Vitamin D2 (DRISDOL)] 50,000 unit PO SWAN 02/17/17 [History] HYDROcodone/APAP 5-325MG [Osmond 5-325] 1 tab PO DAILY PRN 02/17/17 [History] Metoprolol Tartrate 25 mg PO BID 02/17/17 [History] amLODIPine [Norvasc] 10 mg PO DAILY 02/17/17 [History] Atorvastatin [Lipitor] 80 mg PO DAILY 02/19/17 [History] Follow up Appointment(s)/Referral(s): Bella Lew MD [STAFF PHYSICIAN] - 03/11/17 10:45 am Raissa Maloney NPC [Nurse Practitioner] - 03/02/17 12:00 pm Ganga Garduno MD [STAFF PHYSICIAN] - 03/11/17 4:15 pm Yves Villafuerte MD [STAFF PHYSICIAN] - 03/26/17 11:00 am [facility], [NON-STAFF] - As Needed Masood Rodriguez MD [Primary Care Provider] - 03/05/17 10:00 am Ambulatory/Diagnostic Orders: Complete Blood Count w/diff [LAB.AMB] Time Frame: 3 Days, Location: Determined By Patient Comprehensive Metabolic Panel [LAB.AMB] Time Frame: 3 Days, Location: Determined By Patient Activity/Diet/Wound Care/Special Instructions: DISCHARGE INSTRUCTIONS: 1. No driving for 4 weeks, or until physician gives their ok. 2. The patient should sleep in their own bed, no medical bed needed. 3. Stairs are not an issue. If the bedroom is upstairs, it is advised that the patient go up at night and down in the morning for the first week. Go slowly, using handrail and take 1 step at a time. 4. KALIE hose are to be worn for 30 days or until physician discontinues. 5. Heart hugger is to be worn 100% of the time until physician discontinues.( except when showering) 6. No lifting, pushing, or pulling more than 10 pounds for 12 weeks. The physician will advise of any restriction changes. 7. The patient is expected to continue the prescribed walking program. 8. Continue pain control per as needed orders. 9. Continue with incentive spirometry and splinting/heart hugger until otherwise directed by the physician. 10. Must shower daily using liquid antibacterial soap and a separate white washcloth for each individual incision. 11. Routine sternal incision care. No powders, lotions, ointments on incisions. 12. Please call surgeon/ROLL CHANGER for temp greater than 101 F or purulent drainage from incisions. HOME HEALTH SERVICES TO PROVIDE: RN SKILLED HOME CARE SERVICES FOR POST-OP SURGICAL PATIENTS WITH THE FOLLOWING: Coronary Artery Bypass Surgery (CABG), Mitral Valve Replacement/ Repair ( MVR), Aortic Valve Replacement/Repair (AVR) RN TO CONTINUE EDUCATION FROM ``ROAD TO A HEALTH HEART PATIENT EDUCATION MANUAL (GIVEN TO PATIENT IN THE HOSPITAL) MEDICATION RECONCILIATION WITH EDUCATION NEEDED ON FIRST HOME VISIT EMPHASIZE IMPORTANCE OF WEARING BREAST SUPPORT/HEART HUGGER ENCOURAGE USE OF INCENTIVE SPIROMETER 10 X EVERY HOUR WHILE AWAKE ENCOURAGE UTILIZATION OF LOWER EXTREMITY COMPRESSION STOCKINGS/KALIE HOSE and ELEVATE LEGS ABOVE LEVEL OF HEART WHILE AT REST. ENCOURAGE AMBULATION 3-5x/day INCREASING TOLERATES, WHILE AVOID EXTREMES IN TEMPERATURE FREQUENCY: RN TO OPEN THE PATIENT WITHIN 24 HOURS OF DISCHARGE FROM THE HOSPITAL WITH TELEHEALTH INSTALLED AT [facility], RN TO VISIT 2-3 X A WEEK FOR 4 WEEKS ESTABLISHED BY PATIENT NEEDS. REMOVAL OF SUTURES: NURSING SERVICES TO REMOVE SUTURES TWO WEEKS POST SURGICAL DATE [ 03/08/17 ]. If any questions regarding suture removal please call the office at [phone]. LABORATORY: CBC, CMP TO BE DRAWN ON THE THIRD DAY HOME, Wednesday03/01/2017 (RAN STAT) FAX RESULTS TO [phone]. TELEHEALTH PARAMETERS: WEIGHT: NOTIFY MD OF WEIGHT GAIN OF 2 LBS IN 24 HOURS OR 5 LBS IN ONE WEEK HR: NOTIFY MD OF HR <55 BPM OR HR>100 BPM BP: NOTIFY MD IF BP <90/55 OR BP>140/100 O2 SAT: NOTIFY MD IF PO2<93% ON ROOM AIR SEND TELEHEALTH REPORT TO LAMP WIRER AND CARDIOVASCULAR SURGEON THE FIRST WEEK OF CARE AND THEN BI-WEEKLY. PLEASE ADDITIONALLY COMMUNICATE ANY ABNORMALS AND NEW FINDINGS TO THE SURGEONS OFFICE.
--- NOTE | 2017-02-26 11:05 | P.PN ---
Subjective Principal diagnosis: Coronary artery disease This is a very pleasant 51-year-old gentleman with a history of coronary artery disease who presented here for an elective coronary artery bypass grafting surgery on 02/22/[address] Villafuerte. He had undergone a CABG 3 including a GARCIA to the LAD, left radial artery to the second obtuse marginal artery, reverse saphenous vein graft to the posterior descending artery. This is postoperative day #4. He is seen again in follow-up on the selective care unit. He is awake and alert in no acute distress. His chest x-ray results shows resolving atelectatic changes in the bases. He denies any shortness of breath, cough or congestion. He is pulling 2000 MLS on the incentive spirometer. He's been up ambulating without any significant dyspnea on exertion. He is maintaining good O2 saturations in the mid 90s on room air. He 's been afebrile. No leukocytosis. His surgical pain is well controlled. He is hoping to go home today. Objective - Vital Signs Vital signs: Vital Signs Temp 98.2 F 02/26/17 08:00 Pulse 87 02/26/17 08:43 Resp 20 02/26/17 08:00 BP 152/83 02/26/17 08:43 Pulse Ox 94 L 02/26/17 08:43 Intake & Output 02/25/17 02/26/17 02/26/17 18:59 06:59 18:59 Intake Total 180 490 118 Output Total 453 2 Balance -273 488 118 Weight 89.9 kg Intake: IV 20 Flush 20 Oral 180 470 118 Output: Urine 450 Stool 3 2 Other: Voiding Method Urinal Urinal # Voids 3 ABP, PAP, CO, CI - Last Documented Arterial Blood Pressure 157/87 Pulmonary Artery Pressure 43/20 Cardiac Output 7 Cardiac Index 3.5 - Exam GENERAL EXAM: Alert, active, comfortable in no apparent distress. HEAD: Normocephalic. EYES: Normal reaction of pupils, equal size. NOSE: Clear with pink turbinates. THROAT: No erythema or exudates. NECK: No masses, no JVD. CHEST: Dressing is dry and intact. No chest wall deformity. LUNGS: Equal air entry with no crackles, wheeze, rhonchi or dullness. CVS: S1 and S2 normal with no audible murmurs, regular rhythm. ABDOMEN: No hepatosplenomegaly, normal bowel sounds, no guarding or rigidity. SPINE: No scoliosis or deformity SKIN: Incisions are clean dry well approximated. CENTRAL NERVOUS SYSTEM: No focal deficits, tone is normal in all 4 extremities. Extremities: There is no significant peripheral edema. No clubbing, no cyanosis. Peripheral pulses are intact. - Labs CBC & Chem 7: 02/26/17 05:55 02/26/17 05:53 Labs: Abnormal Lab Results - Last 24 Hours (Table) 02/25/17 02/25/17 02/26/17 Range/Units :17 20:56 05:53 RBC (4.30-5.90) m/uL Hgb (13.0-17.5) gm/dL Hct (39.0-53.0) % Potassium 3.3 L (3.5-5.1) mmol/L POC Glucose (mg/dL) 109 H 114 H (75-99) mg/dL Calcium 8.2 L (8.4-10.2) mg/dL Total Protein 5.6 L (6.3-8.2) g/dL Albumin 3.0 L (3.5-5.0) g/dL 02/26/17 02/26/17 Range/Units 05:55 06:07 RBC 3.83 L (4.30-5.90) m/uL Hgb 11.0 L (13.0-17.5) gm/dL Hct 33.5 L (39.0-53.0) % Potassium (3.5-5.1) mmol/L POC Glucose (mg/dL) 112 H (75-99) mg/dL Calcium (8.4-10.2) mg/dL Total Protein (6.3-8.2) g/dL Albumin (3.5-5.0) g/dL Assessment and Plan Plan: Impression: #1 Coronary artery disease status post coronary artery bypass grafting utilizing a GARCIA to the LAD, left radial artery to the second obtuse marginal, reverse SVG to the PDA. This is postoperative day #4. #2 Hypertension. #3 Hyperlipidemia. #4 Ischemic cardiomyopathy. #5 History of smoking. Plan: The patient was seen and evaluated by Dr. Lew. His chest x-ray and labs were reviewed. He is cleared for discharge from the pulmonary standpoint. We' ll see him in the office in 1-2 weeks' time. We'll repeat a chest x-ray then. He is again encouraged regarding the increased use of the incentive spirometer and cough and deep breathing exercises. He is again educated regarding the importance of complete smoking cessation. He will call sooner with any questions or concerns.
[2017-02-26 11:44] LABS: Glucose,Whole Blood 93 mg/dL (75-99)
--- NOTE | 2017-02-26 11:51 | P.PN ---
Subjective Principal diagnosis: Severe Multivessel CAD, s/p CABG This is a pleasant 51-year-old gentleman with a known history of coronary artery disease, cardiomyopathy who is postop day #4 status post coronary artery bypass grafting. He is doing quite well today. Sitting up in a chair denies complaints of chest discomfort, dizziness, palpitations, nausea or shortness of breath. He is anticipating discharge home today. Objective - Vital Signs Vital signs: Vital Signs Temp 98.2 F 02/26/17 08:00 Pulse 87 02/26/17 08:43 Resp 20 02/26/17 08:00 BP 152/83 02/26/17 08:43 Pulse Ox 94 L 02/26/17 08:43 Intake & Output 02/25/17 02/26/17 02/26/17 18:59 06:59 18:59 Intake Total 180 490 118 Output Total 453 2 Balance -273 488 118 Weight 89.9 kg Intake: IV 20 Flush 20 Oral 180 470 118 Output: Urine 450 Stool 3 2 Other: Voiding Method Urinal Urinal # Voids 3 ABP, PAP, CO, CI - Last Documented Arterial Blood Pressure 157/87 Pulmonary Artery Pressure 43/20 Cardiac Output 7 Cardiac Index 3.5 - Exam PHYSICAL EXAMINATION: HEENT: Head is atraumatic, normocephalic. Pupils equal, round. Neck is supple. There is no elevated jugular venous pressure. HEART EXAMINATION: Heart sounds regular, S1 and S2 normal. No murmur or gallop heard. CHEST EXAMINATION: Lungs are clear to auscultation and precussion. No chest wall tenderness is noted on palpation or with deep breathing. Midsternal dressing dry and intact ABDOMEN: Soft, nontender. Bowel sounds are heard. No organomegaly noted. EXTREMITIES: 2+ peripheral pulses with evidence of trace peripheral edema and no calf tenderness noted. NEUROLOGIC patient is awake, alert and oriented x3. . - Labs CBC & Chem 7: 02/26/17 05:55 02/26/17 05:53 Labs: Abnormal Lab Results - Last 24 Hours (Table) 02/25/17 02/25/17 02/26/17 Range/Units 17:17 20:56 05:53 RBC (4.30-5.90) m/uL Hgb (13.0-17.5) gm/dL Hct (39.0-53.0) % Potassium 3.3 L (3.5-5.1) mmol/L POC Glucose (mg/dL) 109 H 114 H (75-99) mg/dL Calcium 8.2 L (8.4-10.2) mg/dL Total Protein 5.6 L (6.3-8.2) g/dL Albumin 3.0 L (3.5-5.0) g/dL 02/26/17 02/26/17 Range/Units 05:55 06:07 RBC 3.83 L (4.30-5.90) m/uL Hgb 11.0 L (13.0-17.5) gm/dL Hct 33.5 L (39.0-53.0) % Potassium (3.5-5.1) mmol/L POC Glucose (mg/dL) 112 H (75-99) mg/dL Calcium (8.4-10.2) mg/dL Total Protein (6.3-8.2) g/dL Albumin (3.5-5.0) g/dL Assessment and Plan Plan: Assessment and plan #1 status post coronary artery bypass grafting #2 history of cardiomyopathy #3 hypertension #4 hyperlipidemia From cardiology's perspective, patient is stable for discharge home. Continue amlodipine 5 mg daily, aspirin 325 mg by mouth daily, atorvastatin 40 mg by mouth daily, Plavix 75 mg daily, lisinopril 5 mg by mouth daily and metoprolol 50 mg by mouth twice a day. He will follow-up with Dr. Garduno in the office in about a week. BEE WORKER note has been reviewed, I agree with a documented findings and plan of care. Patient was seen and examined.
[2017-02-26 12:11] VITALS: BP 130/78; PULSE 76; TEMP 97.2
[2017-02-26] MEDS: amLODIPine 5 MG TAB PO SCH (12:31)
== END 2017-02-26 13:26 | disposition home health service (06) | DRG 236 ==
LOC: 2ORMAIN 05:40 → 6ICU 09:36 → 6SEL 02-25 17:50
PROVIDERS: ADMIT Surgery; ATTEND Surgery
PROC: 06BQ4ZZ Excision of Left Saphenous Vein, Percutaneous Endoscopic Approach (ICD-10-PCS; 2017-02-22)
PROC: B246ZZ4 Ultrasonography of Right and Left Heart, Transesophageal (ICD-10-PCS; 2017-02-22)
PROC: 5A1221Z Performance of Cardiac Output, Continuous (ICD-10-PCS; 2017-02-22)
PROC: 02110A9 Bypass Coronary Artery, Two Arteries from Left Internal Mammary with Autologous Arterial Tissue, Open Approach (ICD-10-PCS; principal; 2017-02-22 08:00)
PROC: 021009W Bypass Coronary Artery, One Artery from Aorta with Autologous Venous Tissue, Open Approach (ICD-10-PCS; 2017-02-22 08:00)
PROC: 03BC4ZZ Excision of Left Radial Artery, Percutaneous Endoscopic Approach (ICD-10-PCS; 2017-02-22 08:00)
DX: I25.118 Atherosclerotic heart disease of native coronary artery with other forms of angina pectoris (principal); I25.82 Chronic total occlusion of coronary artery; I73.9 Peripheral vascular disease, unspecified; I08.3 Combined rheumatic disorders of mitral, aortic and tricuspid valves; I25.5 Ischemic cardiomyopathy; I37.1 Nonrheumatic pulmonary valve insufficiency; I10 Essential (primary) hypertension; E78.5 Hyperlipidemia, unspecified; F17.200 Nicotine dependence, unspecified, uncomplicated; M19.91 Primary osteoarthritis, unspecified site; E55.9 Vitamin D deficiency, unspecified; G89.29 Other chronic pain; M54.5 Low back pain; Z79.82 Long term (current) use of aspirin; Z79.899 Other long term (current) drug therapy; Z82.49 Family history of ischemic heart disease and other diseases of the circulatory system
CPT/HCPCS: 71010; 71020; 80053; 82330; 82805; 83036; 83735; 84132; 85025; 85520; 85610; 85730; 86850; 86891; 86900; 86901; 86920; 94002; 94003; 94640

== ENCOUNTER → 2020-04-27 | Outpatient (CLI) | payer MEDICARE ==
--- NOTE | 2020-04-27 17:34 | MR ---
EXAMINATION TYPE: MR lumbar spine wo con DATE OF EXAM: 04/27/2020 COMPARISON: 07/08/2017 HISTORY: LBP, RLE radic With the plate or multiecho imaging of the lumbar spine was performed without contrast. FINDINGS: Lumbar vertebra have normal alignment. There is severe narrowing of the L4-5 disc space. There is spu rring of the endplates anteriorly and posteriorly at L4-5 with moderate spinal stenosis. There is fac et arthropathy at L4-5 there is no lumbar paraspinal mass. There is small posterior disc bulging at L 2-3 and L3-4 without significant impingement on the spinal canal. There is no compression fracture. I see no focal bone destruction. The visualized sacroiliac joints are intact. IMPRESSION: Moderately severe spondylosis at L4-5 with spinal stenosis. Stenosis appears slightly worse than prev ious exam. No fracture. The extensive spurring and sclerosis not significantly different than old ana maria m.
== END | disposition home or self-care (01) ==
LOC: RADMRIMAIN 14:27
PROVIDERS: ATTEND Internal Medicine
DX: M48.061 Spinal stenosis, lumbar region without neurogenic claudication (principal); M47.816 Spondylosis without myelopathy or radiculopathy, lumbar region
CPT/HCPCS: 72148

== ENCOUNTER → 2022-04-24 | Outpatient (CLI) | payer MEDICARE, OTHER ==
--- NOTE | 2022-04-24 16:06 | XR ---
EXAMINATION TYPE: XR foot complete RT DATE OF EXAM: 04/24/2022 COMPARISON: None HISTORY: Pain TECHNIQUE: 3 view right foot FINDINGS: There is some mild there is deformity of the distal fourth and fifth digits. Alignment othe rwise appears unremarkable. Joint spaces are preserved. No acute fracture or dislocation is evident. Mild subluxation of the proximal phalanx of the first metatarsal may be present laterally. Soft tissu es appear normal. Plantar and Achilles tendon calcaneal heel spurs are present. IMPRESSION: 1. No acute osseous abnormality. Follow up exams can be performed 7-10 days of acute trauma for cont inued pain. 2. Suggestion of mild subluxation of the proximal first phalanx. 3. Calcaneal heel spurs
== END | disposition home or self-care (01) ==
LOC: RADXRMAIN 11:24
PROVIDERS: ATTEND Internal Medicine
DX: M79.671 Pain in right foot (principal)

== ENCOUNTER → 2022-05-15 | Outpatient (CLI) | payer MEDICARE, OTHER ==
--- NOTE | 2022-05-16 04:43 | MR ---
EXAMINATION TYPE: MR lumbar spine wo con DATE OF EXAM: 05/15/2022 COMPARISON: 04/27/2020 HISTORY: Patient having burning pain in right buttocks and down leg, cannot feel right foot Multiplanar multiecho imaging of the lumbar spine performed without contrast. FINDINGS: The lumbar vertebrae have normal alignment. There is degenerative disc space narrowing from L3 to S1. There is a large right-sided posterior L4-5 lumbar disc herniation with some sequestered fragment in the lateral recess. There is a large fragment also from the L4-5 disc extending superiorly along the posterior aspect of the L4 vertebral body and into the neural foramen. There is right side L4-5 neur al foraminal stenosis. The sacroiliac joints are intact. No compression fracture. There is a posterio r calcified disc herniation at L3-4 with moderate facet arthropathy and resulting spinal stenosis. Th ere is no lumbar paraspinal mass. There is small posterior disc bulging and herniation at L1-2 and L2 -3. IMPRESSION: There is large posterior right side L4-5 lumbar disc herniation extending inferiorly and superiorly w ith neural foraminal narrowing and lateral recess stenosis. Disc herniation increased compared to old exam. There is moderate posterior central disc herniation with facet arthropathy at L3-4 and spinal stenosi s which is not significantly different.
== END | disposition home or self-care (01) ==
LOC: RADMRIMAIN 17:40
PROVIDERS: ATTEND Internal Medicine
DX: M47.816 Spondylosis without myelopathy or radiculopathy, lumbar region (principal); M51.26 Other intervertebral disc displacement, lumbar region; M99.73 Connective tissue and disc stenosis of intervertebral foramina of lumbar region; M48.061 Spinal stenosis, lumbar region without neurogenic claudication
CPT/HCPCS: 72148

== ENCOUNTER → 2022-09-15 | Outpatient (CLI) | payer MEDICARE, OTHER ==
[2022-09-15 14:29] LABS: HCT 47.6 % (39.6-50.0); HGB 15.1 g/dL (13.0-17.0); MCH 28.5 pg (27.0-32.0); MCHC 31.7 g/dL (32.0-37.0); Mean Platelet Volume 10.2 fL (9.5-12.2); NRBC Per 100 WBC 0 /100 WBCS (0.0-0.0); Platelet Count 244 X 10*3/uL (140-440); RBC 5.29 X 10*6/uL (4.40-5.60); RDW 12.9 % (11.5-14.5); WBC 7.38 X 10*3/uL (4.50-10.00)
[2022-09-15 15:58] LABS: African American GFR (CKD) 106.7 (60.0-200.0); Anion Gap 12.2 mmol/L (10.00-18.00); Blood Urea Nitrogen 12.9 mg/dL (9.0-27.0); Non-African American GFR(CKD) 92.1 (60.0-200.0); Potassium 3.6 mmol/L (3.5-5.5)
== END | disposition home or self-care (01) ==
LOC: LABPAT 10:00
PROVIDERS: ATTEND Internal Medicine Interventional Cardiology
DX: Z01.812 Encounter for preprocedural laboratory examination (principal); I25.10 Atherosclerotic heart disease of native coronary artery without angina pectoris
CPT/HCPCS: 36415; 80051; 82565; 84520; 85027

== ENCOUNTER 2022-09-24 06:15 | Day surgery (SDC) | payer MEDICARE, OTHER ==
[2022-09-21 12:38] VITALS: BMI 32.3
[2022-09-24] MEDS ORDERED: NITROGLYCERIN SL TABS 0.4 MG TAB SUBLINGUAL PRN ×2 (06:21→08:23)
[2022-09-24] MEDS ORDERED: ASPIRIN 325 MG TAB PO STA (06:21)
[2022-09-24] MEDS ORDERED: SODIUM CHLORIDE 0.9% 1,000 ML in EMPTY BAG 1 BAG IV SCH ×2 (06:21→08:30)
[2022-09-24] MEDS ORDERED: ALPRAZolam 0.25 MG TAB PO PRN (06:21)
[2022-09-24] MEDS ORDERED: ALPRAZolam 0.5 MG TAB PO PRN (06:21)
[2022-09-24 07:15] VITALS: TEMP 97.9
[2022-09-24] MEDS ORDERED: SODIUM CHLORIDE 0.9% 1,000 ML IV ONE (07:16)
[2022-09-24] MEDS ORDERED: LIDOCAINE 1% INJ 10MG/ML (5 ML VIAL-PF) SQ ONE (07:43)
[2022-09-24] MEDS ORDERED: MIDAZOLAM 2 MG/2 ML VIAL IV ONE (07:43)
[2022-09-24] MEDS ORDERED: fentaNYL (PF) 50 MCG/ML 2 ML AMP ONE (07:46)
[2022-09-24] MEDS ORDERED: fentaNYL (PF) 50 MCG/ML 2 ML AMP IV ONE (07:47)
[2022-09-24] MEDS ORDERED: HEPARIN SODIUM 1,000 UN/ML (10ML VL) ONE (08:02)
[2022-09-24] MEDS ORDERED: HEPARIN SODIUM 1,000 UN/ML (10ML VL) IV ONE (08:03)
[2022-09-24] MEDS ORDERED: NITROGLYCERIN 1000MCG/10ML SYRINGE INTRACORON ONE (08:13)
[2022-09-24] MEDS ORDERED: CLOPIDOGREL 75 MG TAB ONE (08:18)
[2022-09-24] MEDS ORDERED: RX INFO: IV CONTRAST WAS GIVEN 1 EACH MISC MISCELLANE PRN (08:23)
[2022-09-24] MEDS ORDERED: HYDROcodone/APAP 10-325MG 1 EACH TAB PO PRN (08:23)
[2022-09-24] MEDS ORDERED: MAG HYDROX/AL HYDROX/SIMETH 30 ML CUP PO PRN (08:23)
[2022-09-24] MEDS ORDERED: ATROPINE SULFATE 0.1 MG/ML 10ML SYRINGE IV PRN (08:23)
[2022-09-24] MEDS ORDERED: ZOLPIDEM 5 MG TAB PO PRN (08:23)
[2022-09-24] MEDS ORDERED: IOPAMIDOL-370 125ML BTL INJ ONE (08:24)
--- NOTE | 2022-09-24 08:30 | P.PCN ---
Date of Procedure: 09/24/22 Operative Findings: CARDIAC CATHETERIZATION AND PERCUTANEOUS CORONARY INTERVENTION PERFORMING PHYSICIAN: Ganga Garduno MD, [facility] PROCEDURE PERFORMED: 1. Selective right and left coronary angiogram. GARCIA into LAD angiogram. Radial artery to LCx angiogram. SVG to RCA angiogram. 2. Left heart catheterization 3. Successful stenting of proximal RCA using 3.25 x 15 mm Xience NOLAN which with an excellent angiographic results 4. Gradient measurement across the right iliac artery 5. Right common femoral artery angiogram. Ultrasound-guided access of the right common femoral artery INDICATION: This is a 57-year-old gentleman with CAD and status post CABG was experiencing symptoms of chest discomfort. He underwent myocardial perfusion imaging stress test and that showed a moderate area of reversibility involving the inferolateral segment of the of the COMPLICATION: None APPROACH: Right common femoral artery LEVEL OF SEDATION: Moderate with the sedation time off 35 minutes PROCEDURE DESCRIPTION: After obtaining an informed consent the patient was brought to the cardiac laboratory monitor. The right common femoral artery was cannulated using micropuncture technique under ultrasound guidance, the micropuncture wire passed easily then I placed 6-Wolof sheath in the right common femoral artery. I did place a long sheath and there was some difficulties advancing the old 35 wire. Because of that a place 35 cm sheath. I did after that selective right and left coronary angiogram using JL4 and JR4 catheters. GARCIA into LAD angiogram was performed using the JR4 catheter as well as see radial artery to OM. The SVG to RCA angiogram was performed using multipurpose catheter. Left heart catheterization was performed using the JR4 catheter which across aortic valve. Then I intervened on the left circumflex. The procedure was completed with no complication. SELECTIVE CORONARY ANGIOGRAM: The right coronary artery: Is chronically occluded by the osteotome Left main: Has mild disease only. The left circumflex: As critical lesion in the very proximal portion. The left anterior descending artery: Has intermediate lesion in the midportion. The GARCIA to LAD is occluded. The radial artery to OM is occluded The SVG to RCA is patent. HEMODYNAMICS: The LVEDP was 4 mmHg was no significant gradient across aortic valve PCI OF THE LCx: Anticoagulation was initiated using heparin with continuous ACT monitoring. Subsequently I did engage the left main using a CLS guiding catheter. I did wire the LCx using a run-through wire. Predilatation was performed using 3 mm balloon before I deployed 3.25 x 15 mm stent where the stent was positioned under fluoroscopy guidance and deployed under 20 noy for 20 seconds. The following angiogram showed an excellent angiographic results and the procedure was completed with no complication CONCLUSION: Intermediate disease involving the mid LAD. The GARCIA into LAD is occluded Critical disease involving the LCx. The radial graft to LCx is occluded. I did perform successful stenting of the proximal LCx Occluded right coronary artery. The SVG to RCA is patent Normal LVEDP POSTPROCEDURE MANAGEMENT: #1 dual antiplatelet therapy aspirin and Plavix for at least 6 months. #2 aggressive cholesterol control #3 follow-up with the patient
[2022-09-24 08:44] VITALS: RESP 16
[2022-09-24 12:28] VITALS: PULSE 58
[2022-09-24 13:10] VITALS: BP 146/85
[2022-09-25] MEDS ORDERED: hydroCHLOROthiazide 25 MG TAB PO SCH (09:00)
[2022-09-25] MEDS ORDERED: ATORVASTATIN 40 MG TAB PO SCH (09:00)
[2022-09-25] MEDS ORDERED: POTASSIUM CHLORIDE ER 10 MEQ TAB.ER.PRT PO SCH (09:00)
[2022-09-25] MEDS ORDERED: METOPROLOL TARTRATE 50 MG TAB PO SCH (09:00)
[2022-09-25] MEDS ORDERED: ASPIRIN 81 MG PO SCH (09:00)
[2022-09-25] MEDS ORDERED: CLOPIDOGREL 75 MG TAB PO SCH (09:00)
== END 2022-09-24 15:51 | disposition home or self-care (01) ==
LOC: CATHCVL 06:15
PROVIDERS: ATTEND Internal Medicine Interventional Cardiology
DX: I25.10 Atherosclerotic heart disease of native coronary artery without angina pectoris (principal); I10 Essential (primary) hypertension; E78.5 Hyperlipidemia, unspecified; I25.5 Ischemic cardiomyopathy; I35.1 Nonrheumatic aortic (valve) insufficiency; I34.0 Nonrheumatic mitral (valve) insufficiency; Z79.82 Long term (current) use of aspirin; Z79.899 Other long term (current) drug therapy
CPT/HCPCS: 93459; C9600; C1887; C1769 ×4; C1725; C1894 ×2; C1874; J2250; J2001; J3010; J1644; Q9967